=== PATIENT | male | born 1955 | race Caucasian/White ===

== ENCOUNTER 2017-04-13 22:29 | Observation (INO) | payer OTHER ==
[2017-04-13 22:51] VITALS: BMI 33.5
[2017-04-13] MEDS ORDERED: SODIUM CHLORIDE 500 ML IV STA (23:12)
[2017-04-13] MEDS ORDERED: methylPREDNISolone NA SUCC 125 MG/2 ML VIAL IVPB ONE (23:12)
[2017-04-14] MEDS ORDERED: methylPREDNISolone NA SUCC 125 MG/2 ML VIAL ONE (00:02)
[2017-04-14] MEDS ORDERED: ALBUTEROL SO4 2.5/IPRATROPIUM 0.5 INH SOL 3 ML VIAL.NEB. NEB ONE (00:02)
[2017-04-14 01:23] LABS: BASOPHIL 0.7 % (0-2.0); EOSINOPHIL 0.1 % (0-4.5); MCH 32.4 pg (25.7-33.7); MCHC 34.1 g/dl (32.0-35.9); MEAN CELL VOLUME 95.2 fl (80-96); NEUTROPHILS 88.2 % (42.8-82.8); PLATELET COUNT 205 K/MM3 (134-434); RDW 13.3 % (11.9-15.9); WHITE BLOOD COUNT 13.7 K/mm3 (4.0-10.0)
[2017-04-14] MEDS: ALBUTEROL SO4 2.5/IPRATROPIUM 0.5 INH SOL 3 ML VIAL.NEB. NEB SCH ×4 (01:43→23:05)
[2017-04-14 01:50] LABS: ALBUMIN 4.1 g/dl (3.4-5.0); ANION GAP 11 (8-16); BILIRUBIN,TOTAL 0.4 mg/dL (0.2-1.0); CALCIUM 8.8 mg/dL (8.5-10.1); CO2 24 mmol/L (21-32); CREATININE 0.8 mg/dL (0.7-1.3); GLUCOSE,RANDOM 147 mg/dL (74-106); SGOT/AST 37 U/L (15-37); SGPT/ALT 43 U/L (12-78)
[2017-04-14 01:53] LABS: ALK PHOS 68 U/L (45-117); TROPONIN I < 0.02 ng/ml (0.00-0.05)
[2017-04-14] MEDS ORDERED: IBUPROFEN 600 MG TABLET (FP) PO ONE ×2 (02:25→02:43)
--- NOTE | 2017-04-14 03:02 | PDOC ---
History of Present Illness - General Chief Complaint: Shortness of Breath Stated Complaint: SHORTNESS OF BREATH Time Seen by Provider: 04/13/17 23:02 History Source: Patient Exam Limitations: No Limitations - History of Present Illness Initial Comments: 04/14/17 02:55 61yo Male patient w/ PmHx: HTN, COPD, HLD presents to ED c/o SOB s/p rotator cuff surgery. Patient states procedure done by Dr. Wisdom at [facility] this morning. Patient states while recovering at home, he became extremely short of breath. Unable to walk short distances. He reports being a smoker and did have a cigarette 2 hours prior to his arrival. He denies CP, Abd pain, Back pain, fever, cough or any other complaints at this time. Timing/Duration: reports: just prior to arrival Severity: reports: moderate Episode Description: See HPI Possible Cause: Yes: no prior episodes Modifying Factors: worse with: activity, albuterol inhaler, albuterol nebulizer , antibiotics, coughing, lying down, oxygen, rest, other Associated Symptoms: denies: denies symptoms, chest pain/soreness, cough, dizziness, earache, facial pain, fever/chills, headache, lightheadedness, muscle aches, nasal congestion, nasal drainage, shortness of breath, sinus infection, sore throat, wheezing, other Past History - Travel Traveled outside of the country in the last 30 days: No Close contact w/someone who was outside of country & ill: No - Past Medical History Allergies/Adverse Reactions: Allergies Allergy/AdvReac Type Severity Reaction Status Date / Time Penicillins Allergy Severe Low Blood Verified 04/13/17 22:43 Pressure COPD: Yes HTN: Yes Hypercholesterolemia: Yes - Surgical History Appendectomy: Yes - Psycho/Social/Smoking Cessation Hx Suicidal Ideation: No Smoking History: Current every day smoker Have you smoked in the past 12 months: Yes Number of Cigarettes Smoked Daily: 20 Information on smoking cessation initiated: No Hx Alcohol Use: No Drug/Substance Use Hx: No Substance Use Type: None Respiratory Specific PMHX - Complaint Specific PMHX Angina: No Bronchitis: No Pneumonia: No Pulmonary Embolus: No TB (Tuberculosis): No Review of Systems - Review of Systems Able to Perform ROS?: Yes Is the patient limited [place] proficient: No Constitutional: No: Chills, Fever Respiratory: Yes: Shortness of Breath, SOB with Exertion, SOB at Rest Cardiac (ROS): No: Chest Pain ABD/GI: No: Constipated, Diarrhea, Nausea, Poor Appetite, Poor Fluid Intake, Vomiting : No: Burning, Dysuria, Flank Pain, Hematuria Musculoskeletal: No: Back Pain All Other Systems: Reviewed and Negative *Physical Exam - Vital Signs Last Vital Signs Temp Pulse Resp BP Pulse Ox 98.0 F 84 22 133/74 93 L 04/13/17 22:44 04/13/17 22:44 04/13/17 22:44 04/13/17 22:44 04/13/17 22:44 - Physical Exam General Appearance: Yes: Nourished, Appropriately Dressed. No: Apparent Distress, Mild Distress, Moderate Distress, Severe Distress Neck: positive: Trachea midline, Supple. negative: Lymphadenopathy (R), Lymphadenopathy (L) Respiratory/Chest: positive: Labored Respiration, Decreased Breath Sounds. negative: Lungs Clear, Normal Breath Sounds, Respiratory Distress, Accessory Muscle Use, Rapid RR, Paradoxal Breathing, Stridor, Wheezing Cardiovascular: positive: Regular Rhythm, Regular Rate Gastrointestinal/Abdominal: positive: Normal Bowel Sounds, Soft, Distended. negative: Tender, Guarding, Rebound, Tenderness Musculoskeletal: positive: Normal Inspection. negative: CVA Tenderness, Decreased Range of Motion, Vertebral Tenderness Extremity: positive: Normal Capillary Refill, Normal Inspection, Normal Range of Motion. negative: Pedal Edema, Swelling, Calf Tenderness, Erythema, Inflammation Integumentary: positive: Normal Color, Dry, Warm. negative: Erythema, Bruising Neurologic: positive: help desk consultant II-XII NML intact, Fully Oriented, Alert, Normal Mood/ Affect, Normal Response. negative: Motor Strength 5/5 ED Treatment Course - LABORATORY CBC & Chemistry Diagram: 04/14/17 01:14 04/14/17 01:14 - ADDITIONAL ORDERS Additional order review: Laboratory Results 04/14/17 04/14/17 01:14 01:14 Sodium 141 Potassium 4.1 Chloride 106 Carbon Dioxide 24 Anion Gap 11 BUN 14 Creatinine 0.8 Creat Clearance w eGFR > 60 Random Glucose 147 H Calcium 8.8 Total Bilirubin 0.4 AST 37 ALT 43 Alkaline Phosphatase 68 Troponin I < 0.02 B-Natriuretic Peptide 34.89 Total Protein 7.0 Albumin 4.1 04/14/17 01:14 RBC 4.50 MCV 95.2 MCHC 34.1 RDW 13.3 MPV 10.0 Neutrophils % 88.2 H Lymphocytes % 8.0 Monocytes % 3.0 L Eosinophils % 0.1 Basophils % 0.7 - RADIOLOGY Radiology Studies Ordered: Category Date Time Status CHEST CT WITH CONTRAST [CT] Stat CT Scan 04/14/17 02:25 Ordered CHEST PA & LAT [RAD] Stat Radiology 04/14/17 01:04 Taken - Medications Given in the ED: ED Medications Discontinued Medications Generic Name Dose Route Start Last Admin Trade Name So PRN Reason Stop Dose Admin Albuterol/Ipratropium 1 amp 04/13/17 23:15 04/14/17 01:43 Duoneb - NEB 04/14/17 00:01 1 amp Q15M JOSE MANUEL Administration Sodium Chloride 500 mls @ 500 mls/hr 04/13/17 23:12 04/14/17 01:43 Normal Saline - IV 04/14/17 00:11 500 mls/hr ASDIR STA Administration Ibuprofen 600 mg 04/14/17 02:25 04/14/17 02:45 Motrin - PO 04/14/17 02:26 600 mg ONCE ONE Administration Methylprednisolone Sodium Succinate 125 mg 04/13/17 23:12 04/14/17 01:44 Solu-Medrol - IVPB 04/13/17 23:13 125 mg ONCE ONE Administration Oxycodone/Acetaminophen 2 combo 04/14/17 02:25 04/14/17 02:45 Percocet 5/325 - PO 04/14/17 02:26 2 combo ONCE ONE Administration Medical Decision Making - Medical Decision Making 04/14/17 04:[address]-Scan. Unable to tolerate at this time. Risk and benefits of testing discussed with patient. Patient verbalized understanding. Will look to admit patient OBS. *DC/Admit/Observation/Transfer Diagnosis at time of Disposition: Hypoxia - Discharge Dispostion Condition at time of disposition: Fair Admit: Yes
[2017-04-14] MEDS ORDERED: MAGNESIUM SULF 50% (8.12 MEQ/2 ML-1 GM VIAL) IVPB ONE (03:44)
[2017-04-14] MEDS ORDERED: MAGNESIUM SULF 50% (8.12 MEQ/2 ML-1 GM VIAL) ONE (03:54)
--- NOTE | 2017-04-14 05:00 | HP ---
CHIEF COMPLAINT: SOB PCP: HISTORY OF PRESENT ILLNESS: This is a 61 y/o man with a past medical history of COPD, HTN, HLD, Current Smoker. Who presents to the ED s/p L- Rotator Cuff Repair, with SOB. Patient reports having shoulder surgery yesterday as an outpatient, and was SOB on discharge. Patient reports increased SOB, SEAY, orthopnea with diap. Patient reports usually he can walk up 2 hills or stairs. He reports not being able to take a few steps without being in distress since having the surgery. Patient admits to smoking a cigarette today, but now wants to quit. Patient denies fever , chills, CP, AP, N/V/D, constipation, dysuria. ER course was notable for: (1) Chest Xray- No evidence of active pulmonary disease. Left basilar ateclectasis versus soft tissues of the chest projecting over the left lung base stimulating atelectatic changes (2) WBC 13.2 (3) BNP 34.89 Recent Travel: None PAST MEDICAL HISTORY: COPD HTN HLD PAST SURGICAL HISTORY: R- Knee (plate) L- Knee Replacement L- Hip Replacement Appendectomy Social History: Smoking: Cigarettes 1PPD (active) Alcohol: None Drugs: None Family History: Father: Cancer, other (w mets/bone) Mother: Healthy, age 94 Allergies Penicillins Allergy (Severe, Verified 04/13/17 22:43) Low Blood Pressure HOME MEDICATIONS: REVIEW OF SYSTEMS CONSTITUTIONAL: diaphoresis Absent: fever, chills, generalized weakness, malaise, loss of appetite, weight change HEENT: Absent: rhinorrhea, nasal congestion, throat pain, throat swelling, difficulty swallowing, mouth swelling, ear pain, eye pain, visual changes CARDIOVASCULAR: Absent: chest pain, syncope, palpitations, irregular heart rate, lightheadedness , peripheral edema RESPIRATORY: shortness of breath, dyspnea with exertion, orthopnea Absent: cough, wheezing, stridor, hemoptysis GASTROINTESTINAL: Absent: abdominal pain, abdominal distension, nausea, vomiting, diarrhea, constipation, melena, hematochezia GENITOURINARY: Absent: dysuria, frequency, urgency, hesitancy, hematuria, flank pain, genital pain MUSCULOSKELETAL: left shoulder pain Absent: myalgia, arthralgia, joint swelling, back pain, neck pain SKIN: Absent: rash, itching, pallor HEMATOLOGIC/IMMUNOLOGIC: Absent: easy bleeding, easy bruising, lymphadenopathy, frequent infections ENDOCRINE: Absent: unexplained weight gain, unexplained weight loss, heat intolerance, cold intolerance NEUROLOGIC: Absent: headache, focal weakness or paresthesias, dizziness, unsteady gait, seizure, mental status changes, bladder or bowel incontinence PSYCHIATRIC: Absent: anxiety, depression, suicidal or homicidal ideation, hallucinations. PHYSICAL EXAMINATION Vital Signs - 24 hr 04/13/17 22:44 Temperature 98.0 F Pulse Rate 84 Respiratory 22 Rate Blood Pressure 133/74 O2 Sat by Pulse 93 L Oximetry (%) GENERAL: Obese, awake, alert, and fully oriented, in moderate distress. HEAD: Normal with no signs of trauma. EYES: Pupils equal, round and reactive to light, extraocular movements intact, sclera anicteric, conjunctiva clear. No lid lag. EARS, NOSE, THROAT: Ears normal, nares patent, oropharynx clear without exudates. Moist mucous membranes. NECK: Normal range of motion, supple without lymphadenopathy, JVD, or masses. LUNGS: Breath sounds diminished to left lobes. Pursed lip breathing. No wheezes , and no crackles. No accessory muscle use. HEART: Regular rate and rhythm, normal S1 and S2 without murmur, rub or gallop. ABDOMEN: Soft, nontender, not distended, normoactive bowel sounds, no guarding, no rebound, no masses. No hepatomegaly or splenomegaly. MUSCULOSKELETAL: Normal range of motion at all joints. No bony deformities or tenderness. No CVA tenderness. UPPER EXTREMITIES: 2+ pulses, warm, well-perfused. No cyanosis. No clubbing. No peripheral edema. LOWER EXTREMITIES: 2+ pulses, warm, well-perfused. No calf tenderness. No peripheral edema. NEUROLOGICAL: Cranial nerves II-XII intact. Normal speech. Gait not observed. PSYCHIATRIC: Cooperative. Good eye contact. Appropriate mood and affect. SKIN: Warm, dry, normal turgor, no rashes or lesions noted, normal capillary refill. Laboratory Results - last 24 hr 04/14/17 04/14/17 04/14/17 01:14 01:14 01:14 WBC 13.7 H RBC 4.50 Hgb 14.6 Hct 42.8 MCV 95.2 MCH 32.4 MCHC 34.1 RDW 13.3 Plt Count 205 MPV 10.0 Neutrophils % 88.2 H Lymphocytes % 8.0 Monocytes % 3.0 L Eosinophils % 0.1 Basophils % 0.7 Sodium 141 Potassium 4.1 Chloride 106 Carbon Dioxide 24 Anion Gap 11 BUN 14 Creatinine 0.8 Creat Clearance w eGFR > 60 Random Glucose 147 H Calcium 8.8 Total Bilirubin 0.4 AST 37 ALT 43 Alkaline Phosphatase 68 Troponin I < 0.02 B-Natriuretic Peptide 34.89 Total Protein 7.0 Albumin 4.1 ASSESSMENT/PLAN: This is a 61 y/o man Placed on Observation for Hypoxia for further evaluation of their emergent condition. Problem List - Problem (1) Hypoxia Assessment/Plan: - s/p Shoulder Sx strong suspicion for PE - Wells Score for PE 4.5 - Patient adamantly refused CTA, risks and dangers explained in detail - Will treat empirically with Heparin - Doppler of lower extremities r/o DT- pending - Solumederol, Duonebs, Percocet given in ED - Continue O2 - ABG- pending - Appreciate Pulmonary Consult Code(s): R09.02 - HYPOXEMIA (2) COPD (chronic obstructive pulmonary disease) Assessment/Plan: - Not Controlled - Likely exacerbated due to recent surgery, concern for PE - Duo neb given in ED - Duonebs prn - O2 - Chest Xray- no evidence of active pulmonary disease, left basilar atelectasis versus soft tissues of the chest projecting over the left lung base stimulating athletic changes - Monitor vitals Code(s): J44.9 - CHRONIC OBSTRUCTIVE PULMONARY DISEASE, UNSPECIFIED (3) HTN (hypertension) Assessment/Plan: - Controlled - Monitor BP - Need to verify in am home med Code(s): I10 - ESSENTIAL (PRIMARY) HYPERTENSION (4) HLD (hyperlipidemia) Assessment/Plan: - Continue home med Code(s): E78.5 - HYPERLIPIDEMIA, UNSPECIFIED (5) Tobacco dependence Assessment/Plan: - Counseled for smoking cessation, patient is amendable - Nicotine Patch Code(s): F17.200 - NICOTINE DEPENDENCE, UNSPECIFIED, UNCOMPLICATED (6) DVT prophylaxis Assessment/Plan: - OOB - Heparin Code(s): TQJ5580 - Visit type - Emergency Visit Emergency Visit: Yes ED Registration Date: 04/14/17 Care time: The patient presented to the Emergency Department on the above date and was hospitalized for further evaluation of their emergent condition. - New Patient This patient is new to me today: Yes Date on this admission: 04/14/17 - Critical Care Critical Care patient: No
[2017-04-14 06:02] LABS: ALLENS TEST POSITIVE; ART PUNCT SITE RIGHT RADIAL; ARTERIAL BLD GAS O2 SATURATION 91.4 % (90-98.9); ARTERIAL BLOOD GAS BASE EXCESS -3.5 meq/l (-2-2); ARTERIAL BLOOD GAS HCO3 19.5 meq/L (22-26); ARTERIAL BLOOD GAS PO2 58.8 mmHg (80-100); ARTERIAL BLOOD GAS pH 7.42 (7.35-7.45); PT. ON O2? NO; TYPE OF O2 ROOM AIR
[2017-04-14 06:03] LABS: METHEMOGLOBIN 0.8 % (0.4-1.5)
[2017-04-14] MEDS ORDERED: HEPARIN NA (PORCINE) 5,000 UNITS/ML 1ML VIAL IVPUSH PRN (06:23)
[2017-04-14] MEDS ORDERED: HEPARIN INFUSION - 500 ML IVPB SCH (06:30)
[2017-04-14] MEDS ORDERED: ALBUTEROL SO4 2.5/IPRATROPIUM 0.5 INH SOL 3 ML VIAL.NEB. NEB STA (07:05)
[2017-04-14] MEDS ORDERED: LORazepam 0.5 MG TABLET PO STA (08:03)
[2017-04-14] MEDS: oxyCODONE HCL 5 MG TABLET PO PRN ×3 (08:10→20:58)
[2017-04-14] MEDS: ACETAMINOPHEN 325 MG TABLET (FP) PO PRN ×2 (08:11→14:30)
[2017-04-14 08:28] LABS: MCH 32.2 pg (25.7-33.7); MCHC 33.9 g/dl (32.0-35.9); MEAN CELL VOLUME 95.2 fl (80-96); MEAN PLT VOLUME 10.3 fl (7.5-11.1); PLATELET COUNT 182 K/MM3 (134-434); RDW 13.7 % (11.9-15.9); WHITE BLOOD COUNT 9.5 K/mm3 (4.0-10.0)
[2017-04-14] MEDS: NICOTINE 21 MG/24 HOURS TOPICAL PATCH TD SCH (10:38)
--- NOTE | 2017-04-14 11:38 | EKG ---
Test Reason : Blood Pressure : / mmHG Vent. Rate : 090 BPM Atrial Rate : 090 BPM P-R Int : 130 ms QRS Dur : 104 ms QT Int : 354 ms P-R-T Axes : -13 -12 039 degrees QTc Int : 433 ms NORMAL SINUS RHYTHM ATRIAL ABNORMALITY ST-T ABNORMALITY IN aVL NO PREVIOUS ECGS AVAILABLE CL Confirmed by KEV SEGURA MD ([id number]) on 04/14/2017 11:37:52 AM Referred By: Confirmed By:KEV SEGURA MD
--- NOTE | 2017-04-14 13:42 | PN ---
Progress Note (short form) - Note Progress Note: PULMONARY CONSULTATION DICTATED 04/14/17 IMP ACUTE HYPOXEMIC RESPIRATORY FAILURE S/P LEFT SHOULDER SURGERY R/O PE COPD EXACERBATION HTN HLD POST-OP ATELECTASIS MORBID OBESITY R/O JUSTIN SMOKER PLAN INHALED BRONCHODILATORS O2 MEDROL HEPARIN PENDING RESULTS OF CHEST CTA AND LOWER EXT ULRASOUND DUPLEX ULTRASOUND LOWER EXTREMITIES CHEST CTA INCENTIVE SPIROMETER SMOKING CESSATION SLEEP SCREEN DR MCCARTHY Problem List - Problems (1) COPD (chronic obstructive pulmonary disease) Code(s): J44.9 - CHRONIC OBSTRUCTIVE PULMONARY DISEASE, UNSPECIFIED (2) HLD (hyperlipidemia) Code(s): E78.5 - HYPERLIPIDEMIA, UNSPECIFIED (3) HTN (hypertension) Code(s): I10 - ESSENTIAL (PRIMARY) HYPERTENSION (4) Hypoxia Code(s): R09.02 - HYPOXEMIA (5) Tobacco dependence Code(s): F17.200 - NICOTINE DEPENDENCE, UNSPECIFIED, UNCOMPLICATED (6) Acute hypoxemic respiratory failure Code(s): J96.01 - ACUTE RESPIRATORY FAILURE WITH HYPOXIA (7) Morbid obesity due to excess calories Code(s): E66.01 - MORBID (SEVERE) OBESITY DUE TO EXCESS CALORIES
[2017-04-14] MEDS: amLODIPine BESYLATE 10 MG TABLET (FP) PO SCH (14:29)
[2017-04-14] MEDS: ISOSORBIDE MONONITRATE 30 MG TAB.SR.24H (FP) PO SCH (14:29)
--- NOTE | 2017-04-14 14:30 | CONS ---
PULMONARY CONSULTATION DATE OF CONSULTATION: 04/14/2017 REQUESTING PHYSICIAN: MARTINEZ Carlton HISTORY OF PRESENT ILLNESS: The patient is a 61-year-old white male with past medical history of hyperlipidemia, COPD, hypertension, longstanding history of tobacco use, currently still smoking, history of left total hip replacement and left knee surgery, status post left rotator cuff surgery on April 13, presents to [facility] with shortness of breath. Patient states he underwent a rotator cuff surgery earlier on the day of admission. He said when waking up from anesthesia, he was unable to breathe. He had to sit up, and he said he was gasping for air. He said this is a new event. It has never happened before where he was unable to lie flat. Apparently, he improved a little bit and went home. When back home, he became extremely short of breath, unable to walk short distances. At which time, he presented to the emergency room. In the ER, he was noted to be hypoxemic, in moderate respiratory distress. He was administered some bronchodilators with minimal improvement and transferred out to the telemetry unit for further management. Patient also denies any chest pain, nausea, or vomiting. He had diaphoresis. The patient denied any cough or hemoptysis. He states that he has a longstanding history of tobacco use and currently still smokes. He denies any history of DVT or PE in the past. Of note is he was noticed to be hypoxemic and have elevated D-dimer on admission. He was advised of a CTA, which he initially refused. 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 There is no history of recent DVT or no family history of DVT or PE in the past. PAST MEDICAL HISTORY: Again includes hypertension, morbid obesity, as well as COPD maintained on inhaler bronchodilator. REVIEW OF SYSTEMS: Positive orthopnea. Positive dyspnea, wheeze. No chest pain. No palpitation. No nausea. No vomiting. No abdominal pain. CURRENT MEDICATIONS: Include Tylenol, heparin, NicoDerm, DuoNeb, and Roxicodone. PHYSICAL EXAMINATION: General: The patient is an obese male, well awake, alert, mildly dyspneic. Vital Signs: Blood pressure is 140/68, respiratory rate is about 28. He is afebrile. O2 saturation is 93% on 3 L. HEENT: Normocephalic, atraumatic. Neck: Supple. Heart: Regular with S1, S2. Chest: A few scattered wheezes anteriorly. Abdomen: Soft. Bowel sounds are positive. Extremities: Bilateral extremity edema. LABORATORY DATA: D-dimer is 392. Blood gas of pH 7.42, pCO2 of 30, pO2 of 58, a bicarbonate 19, and a saturation of 91.4. WBC is 9.5, hemoglobin 14.4, hematocrit 42.4, and a platelet count of 182,000. BUN is 14, creatinine is 0.8. Chest x-ray reveals no infiltrates and no effusions, left base atelectasis. IMPRESSION: Acute hypoxemic respiratory failure status post left shoulder surgery. 1. We cannot exclude the possible pulmonary embolism. Patient is at increased risk recent surgery as well as morbid obesity, likely a sedentary lifestyle. 2. Probable mild chronic obstructive pulmonary exacerbation precipitated by Anesthesia. 3. Hypertension. 4. Hyperlipidemia. 5. Likely obstructive sleep apnea. PLAN: Short inhaled bronchodilators, short course of steroids, duplex lower extremities, rule out DVT. Chest CTA to rule out PE. Continue anticoagulation pending results of duplex as well as chest CT. Supplemental O2. Smoking cessation is advised and counseled. MARGI MCCARTHY M.D. RUBIO/[id number]
[2017-04-14] MEDS ORDERED: LORazepam 1 MG TABLET PO ONE (14:34)
[2017-04-14] MEDS ORDERED: LORazepam 1 MG TABLET ONE (14:38)
[2017-04-14] MEDS: methylPREDNISolone NA SUCC 40 MG/1 ML VIAL IVPB SCH ×2 (14:44→20:57)
--- NOTE | 2017-04-14 18:10 | HOSP ---
Subjective - Review of Symptoms Events since last encounter: Patient seen and examined at bedside this morning. At the time was refusing to go for CTA. Did finally consent, results reviewed. No evidence of pulmonary embolism. Heparin drip stopped. Will order subq lovenox for this evening. Physical Examination Vital Signs: Vital Signs Temperature 98.1 F 04/14/17 10:00 Pulse Rate 89 04/14/17 13:09 Respiratory Rate 32 H 04/14/17 13:09 Blood Pressure 152/84 04/14/17 13:09 O2 Sat by Pulse Oximetry (%) 91 L 04/14/17 13:09 Labs: CBC, BMP 04/14/17 07:20
[2017-04-14] MEDS ORDERED: ACETAMINOPHEN 500 MG TABLET (FP) PO ONE (18:22)
[2017-04-14] MEDS ORDERED: ACETAMINOPHEN 325 MG TABLET (FP) PO ONE (18:22)
[2017-04-14] MEDS ORDERED: ACETAMINOPHEN 500 MG TABLET (FP) ONE (18:41)
[2017-04-14] MEDS ORDERED: ACETAMINOPHEN 325 MG TABLET (FP) PO PRN (20:31)
[2017-04-14] MEDS: ENOXAPARIN NA (PORCINE) 40 MG/0.4 ML DISP.SYRIN SQ SCH (20:57)
[2017-04-14] MEDS ORDERED: ZOLPIDEM TARTRATE 5 MG TABLET PO ONE (23:50)
[2017-04-14] MEDS ORDERED: ZOLPIDEM TARTRATE 5 MG TABLET ONE (23:52)
[2017-04-15] MEDS: ALBUTEROL SO4 2.5/IPRATROPIUM 0.5 INH SOL 3 ML VIAL.NEB. NEB SCH ×3 (06:30→13:25)
[2017-04-15 08:09] LABS: CPK 793 IU/L (39-308); TROPONIN I < 0.02 ng/ml (0.00-0.05)
[2017-04-15] MEDS: NICOTINE 21 MG/24 HOURS TOPICAL PATCH TD SCH (09:16)
[2017-04-15] MEDS: ENOXAPARIN NA (PORCINE) 40 MG/0.4 ML DISP.SYRIN SQ SCH (09:16)
[2017-04-15] MEDS: amLODIPine BESYLATE 10 MG TABLET (FP) PO SCH (09:17)
[2017-04-15] MEDS: ISOSORBIDE MONONITRATE 30 MG TAB.SR.24H (FP) PO SCH (09:18)
[2017-04-15] MEDS: methylPREDNISolone NA SUCC 40 MG/1 ML VIAL IVPB SCH (09:18)
[2017-04-15] MEDS: oxyCODONE HCL 5 MG TABLET PO PRN (09:18)
[2017-04-15 12:03] VITALS: BP 131/83; TEMP 98
--- NOTE | 2017-04-15 13:06 | PN ---
Progress Note (short form) - Note Progress Note: PULMONARY Breathing much improved. +mild nonproductive cough, denies wheezes. CTA without evidence of PE, with some bibasilar atelectasis. Last Vital Signs Temp Pulse Resp BP Pulse Ox 98.0 F 85 20 131/83 94 L 04/15/17 10:00 04/15/17 10:15 04/15/17 10:00 04/15/17 10:00 04/15/17 10:15 Gen: NAD at rest Heart: RRR Lung: distant breath sounds Abd: soft, nontender Ext: no edema CBC, BMP 04/14/17 07:20 04/14/17 01:14 Active Medications Acetaminophen (Tylenol -) 650 mg PO Q4H PRN PRN Reason: PAIN 6-10 Last Admin: 04/15/17 09:17 Dose: 650 mg Albuterol/Ipratropium (Duoneb -) 1 amp NEB Q4HWA [facility] Last Admin: 04/15/17 10:15 Dose: Not Given Amlodipine Besylate (Norvasc -) 10 mg PO DAILY [facility] Last Admin: 04/15/17 09:17 Dose: 10 mg Enoxaparin Sodium (Lovenox -) 40 mg SQ DAILY [facility] Last Admin: 04/15/17 09:16 Dose: 40 mg Isosorbide Mononitrate (Imdur -) 30 mg PO DAILY [facility] Last Admin: 04/15/17 09:18 Dose: 30 mg Nicotine (Nicoderm Patch -) 21 mg TD DAILY [facility] Last Admin: 04/15/17 09:16 Dose: 21 mg Oxycodone HCl (Roxicodone -) 10 mg PO Q4H PRN PRN Reason: PAIN 6-10 Last Admin: 04/15/17 09:18 Dose: 10 mg A/P Acute COPD Exacerbation Recent Shoulder Surgery Atelectasis HTN Morbid Obesity Smoker r/o JUSTIN - inhaled bronchodilators - incentive spirometry - smoking cessation - DVT prophylaxis - outpt PFTs, PSG but pt would like to defer sleep study at this time
--- NOTE | 2017-04-15 13:16 | DS ---
Physical Exam: SUBJECTIVE: Patient seen and examined at bedside. Feels better, breathing is better. OBJECTIVE: Vital Signs Period Temp Pulse Resp BP Sys/Vasquez Pulse Ox Last 24 Hr 97.8 F-98.7 F 80-89 18-20 119-134/56-84 94-94 PHYSICAL EXAM GENERAL: The patient is awake, alert, and fully oriented, in no acute distress. HEAD: Normal with no signs of trauma. EYES: PERRL, extraocular movements intact, sclera anicteric, conjunctiva clear. ENT: Ears normal, nares patent, oropharynx clear without exudates, moist mucous membranes. NECK: Trachea midline, full range of motion, supple. LUNGS: Breath sounds equal, clear to auscultation bilaterally, no wheezes, no crackles, no accessory muscle use. HEART: Regular rate and rhythm, S1, S2 without murmur, rub or gallop. ABDOMEN: Soft, nontender, nondistended, normoactive bowel sounds, no guarding, no rebound, no hepatosplenomegaly, no masses. EXTREMITIES: 2+ pulses, warm, well-perfused, no edema; left arm in immobilizer NEUROLOGICAL: Cranial nerves II through XII grossly intact. Normal speech, steady gait. LABS CBCD WBC 9.5 K/mm3 (4.0-10.0) D 04/14/17 07:20 RBC 4.45 M/mm3 (4.00-5.60) 04/14/17 07:20 Hgb 14.4 GM/dL (11.7-16.9) 04/14/17 07:20 Hct 42.4 % (35.4-49) 04/14/17 07:20 MCV 95.2 fl (80-96) 04/14/17 07:20 MCHC 33.9 g/dl (32.0-35.9) 04/14/17 07:20 RDW 13.7 % (11.9-15.9) 04/14/17 07:20 Plt Count 182 K/MM3 (134-434) 04/14/17 07:20 MPV 10.3 fl (7.5-11.1) 04/14/17 07:20 CMP Sodium 141 mmol/L (136-145) 04/14/17 01:14 Potassium 4.1 mmol/L (3.5-5.1) 04/14/17 01:14 Chloride 106 mmol/L (98-107) 04/14/17 01:14 Carbon Dioxide 24 mmol/L (21-32) 04/14/17 01:14 Anion Gap 11 (8-16) 04/14/17 01:14 BUN 14 mg/dL (7-18) 04/14/17 01:14 Creatinine 0.8 mg/dL (0.7-1.3) 04/14/17 01:14 Creat Clearance w eGFR > 60 (>60) 04/14/17 01:14 Calcium 8.8 mg/dL (8.5-10.1) 04/14/17 01:14 Total Bilirubin 0.4 mg/dL (0.2-1.0) 04/14/17 01:14 AST 37 U/L (15-37) 04/14/17 01:14 ALT 43 U/L (12-78) 04/14/17 01:14 Alkaline Phosphatase 68 U/L (45-117) 04/14/17 01:14 Total Protein 7.0 g/dl (6.4-8.2) 04/14/17 01:14 Albumin 4.1 g/dl (3.4-5.0) 04/14/17 01:14 Troponin, BNP 04/14/17 04/15/17 04/15/17 17:25 05:25 12:55 Troponin I < 0.02 < 0.02 < 0.02 HOSPITAL COURSE: Date of Admission:04/14/17 Date of Discharge: 04/15/17 Pre hospital course This is a 61 y/o man with a past medical history of COPD, HTN, HLD, 1 1/2 PPD smoker. Presented to the ED s/p left rotator cuff repair, complaining of SOB. Patient reported he had same day shoulder surgery the day before at an outside facility. He was SOB on discharge. Patient reported increased SOB, SEAY, and orthopnea with diaphoresis. Patient reported he usually can walk up 2 hills or 2 flights of stairs, but now cannot take more than a few steps without being in distress. Patient denied fever, sweats, chills; denied chest pain, palpitations , dizziness, or lightheadedness. ER course (1) Chest Xray- No evidence of active pulmonary disease. Left basilar ateclectasis versus soft tissues of the chest projecting over the left lung base stimulating atelectatic changes (2) WBC 13.2 (3) BNP 34.89 Subsequent hospital course Lower extremity dopplers were negative for DVT. CTA was negative for PE. CTA showed moderate to marked compression of T8 with minimal retropulsion and without any significant compromise of the spinal canal. 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 Patient oxygenation status was assessed prior to discharge. His SaO2 at rest on room air was 93%; his SaO2 with flat surface walking on room air was 91%. Patient declined inpatient screening for JUSTIN. Minutes to complete discharge: 35 Discharge Summary Reason For Visit: HYPOXIA Current Active Problems Acute hypoxemic respiratory failure (Acute) COPD (chronic obstructive pulmonary disease) (Acute) DVT prophylaxis (Acute) HLD (hyperlipidemia) (Acute) HTN (hypertension) (Acute) Hypoxia (Acute) Morbid obesity due to excess calories (Acute) Tobacco dependence (Acute) Condition: Improved - Instructions Diet, Activity, Other Instructions: Three prescriptions have been sent to [facility]. One is for a nicotine patch to help with smoking cessation. The other two are inhalers. Take all these medications as directed. You can follow up with the lab courier who saw you here at [facility], Dr. Penny. His contact information is enclosed. Return to the emergency department for any new or worsening symptoms. Referrals: Vaughn Penny MD [Staff Physician] - 2 Weeks Disposition: HOME - Home Medications Comprehensive Discharge Medication List: Ambulatory Orders Amlodipine Besylate [Norvasc -] 10 mg PO DAILY 04/14/17 Isosorbide Mononitrate [Isosorbide Mononitrate ER] 30 mg PO DAILY 04/14/17 This patient is new to me today: Yes Date on this admission: 04/15/17 Emergency Visit: Yes ED Registration Date: 04/14/17 Care time: The patient presented to the Emergency Department on the above date and was hospitalized for further evaluation of their emergent condition. Critical Care patient: No - Discharge Referral Referred to [facility] No
[2017-04-15 13:27] VITALS: PULSE 115
[2017-04-15 14:14] LABS: CPK 750 IU/L (39-308); TROPONIN I < 0.02 ng/ml (0.00-0.05)
== END 2017-04-15 14:30 | disposition home or self-care (01) ==
LOC: JER 22:29 → JERBED 04-14 05:40 → UNDOADMOB 04-14 05:40 → JERBED 04-14 05:43 → J4S 04-14 07:56
PROVIDERS: ADMIT Internal Medicine; ATTEND Nurse Practitioner Acute Care
PROC: 3E0333Z Introduction of Anti-inflammatory into Peripheral Vein, Percutaneous Approach (ICD-10-PCS; principal; 2017-04-14)
PROC: 3E033GC Introduction of Other Therapeutic Substance into Peripheral Vein, Percutaneous Approach (ICD-10-PCS; 2017-04-14)
PROC: 3E0337Z Introduction of Electrolytic and Water Balance Substance into Peripheral Vein, Percutaneous Approach (ICD-10-PCS; 2017-04-14)
PROC: 3E0F7GC Introduction of Other Therapeutic Substance into Respiratory Tract, Via Natural or Artificial Opening (ICD-10-PCS; 2017-04-14)
DX: J96.01 Acute respiratory failure with hypoxia (principal); I10 Essential (primary) hypertension; E78.5 Hyperlipidemia, unspecified; J44.1 Chronic obstructive pulmonary disease with (acute) exacerbation; F17.210 Nicotine dependence, cigarettes, uncomplicated; Z88.0 Allergy status to penicillin; E66.01 Morbid (severe) obesity due to excess calories; Z68.33 Body mass index [BMI] 33.0-33.9, adult
CPT/HCPCS: 36415; 36600; 71020-TC; 71275-TC; 80053; 82272; 82375; 82553; 82803; 83050; 83880; 84484; 85025; 85027; 85379; 85730; 93005; 93010; 93970-TC; 94010; 94640; 94761; 99285-25; G0378; J1644

== ENCOUNTER 2018-01-18 21:37 | Inpatient (IN) | payer OTHER ==
--- NOTE | 2018-01-18 21:49 | PDOC ---
History of Present Illness - General Chief Complaint: Injury Stated Complaint: CHEST PAIN/SOB Time Seen by Provider: 01/18/18 21:48 History Source: Patient - History of Present Illness Initial Comments: 01/19/18 00:00 62 year old male with right chest pain, increased SOB worse with exertion s/p mechanical trip and fall over PET prior to arrival, now with worsening pain. this is the second fall in two day with same mechanism. History : COPD; Past History - Past Medical History Allergies/Adverse Reactions: Allergies Allergy/AdvReac Type Severity Reaction Status Date / Time Penicillins Allergy Severe Low Blood Verified 01/18/18 21:45 Pressure Home Medications: Ambulatory Orders Amlodipine Besylate [Norvasc -] 10 mg PO DAILY 04/14/17 Isosorbide Mononitrate [Isosorbide Mononitrate ER] 30 mg PO DAILY 04/14/17 Albuterol Sulfate Inhaler - [Ventolin HFA Inhaler -] 1 - 2 inh PO Q4H #1 inhaler 04/15/17 Nicotine Patch [Nicoderm Patch -] 21 mg TD DAILY #30 patch 04/15/17 Tiotropium [place] [Spiriva] 1 inh PO DAILY #30 inhaler 04/15/17 Anemia: No Asthma: No Cancer: No Cardiac Disorders: No CVA: No COPD: Yes CHF: No Dementia: No Diabetes: No GI Disorders: No Disorders: No HTN: Yes Hypercholesterolemia: Yes Liver Disease: No Seizures: No Thyroid Disease: No - Surgical History Abdominal Surgery: No Appendectomy: Yes Cardiac Surgery: No Cholecystectomy: No Lung Surgery: No Neurologic Surgery: No Orthopedic Surgery: Yes (left rotator cuff surgery 04/13/2017) - Suicide/Smoking/Psychosocial Hx Smoking History: Former smoker Have you smoked in the past 12 months: No Number of Cigarettes Smoked Daily: 20 Information on smoking cessation initiated: No Hx Alcohol Use: No Drug/Substance Use Hx: No Substance Use Type: None Hx Substance Use Treatment: No Review of Systems - Review of Systems Able to Perform ROS?: Yes Is the patient limited Albanian proficient: No Respiratory: Yes: Shortness of Breath Cardiac (ROS): Yes: Chest Pain *Physical Exam - Vital Signs Last Vital Signs Temp Pulse Resp BP Pulse Ox 98.0 F 76 16 155/85 94 L 01/18/18 21:39 01/18/18 21:39 01/18/18 21:39 01/18/18 21:39 01/18/18 21:39 - Physical Exam General Appearance: Yes: Appropriately Dressed Respiratory/Chest: positive: Lungs Clear, Normal Breath Sounds, Other ( decreased breath sounds) Cardiovascular: positive: Regular Rhythm, Regular Rate Gastrointestinal/Abdominal: positive: Normal Bowel Sounds, Soft Musculoskeletal: positive: Normal Inspection Extremity: positive: Normal Capillary Refill, Normal Inspection, Normal Range of Motion Integumentary: positive: Normal Color, Dry, Warm Neurologic: positive: Fully Oriented, Alert, Normal Mood/Affect ED Treatment Course - LABORATORY CBC & Chemistry Diagram: 01/18/18 22:30 01/18/18 22:30 Medical Decision Making - Medical Decision Making 01/18/18 23:59 CT chest : There is no aortic aneurysm. There is no significant mediastinal or hilar adenopathy. The heart size is normal. The trachea and bronchi are patent. There is no pleural or pericardial effusion. Mild/moderate centrilobular emphysema is noted. There is basilar dependent atelectasis but no evidence of contusion. No pneumothorax. There are old right-sided rib fractures without definite acute fracture of the right seventh rib and possible acute fractures of the right fourth fifth and eighth ribs. Upper abdominal structures are normal. 01/19/18 00:36 patient signed out to Dr. lilly/ Dr. Mahoney for admission and further management of care. *DC/Admit/Observation/Transfer Diagnosis at time of Disposition: Shortness of breath on exertion Multiple fractures of ribs Qualifiers: Encounter type: initial encounter Fracture type: closed Laterality: right Qualified Code(s): S22.41XA - Multiple fractures of ribs, right side, initial encounter for closed fracture COPD (chronic obstructive pulmonary disease) Qualifiers: COPD type: unspecified COPD Qualified Code(s): J44.9 - Chronic obstructive pulmonary disease, unspecified - Discharge Dispostion Decision to Admit order: Yes - Referrals Referrals: Marko Croft MD [Primary Care Provider] - - Patient Instructions - Post Discharge Activity
[2018-01-18] MEDS ORDERED: ALBUTEROL SO4 0.083% IH SOL 2.5 MG/3 ML VIAL.NEB. NEB ONE ×2 (21:55→22:30)
--- NOTE | 2018-01-18 22:03 | PDOC ---
*Physical Exam - Vital Signs Last Vital Signs Temp Pulse Resp BP Pulse Ox 98.0 F 76 16 155/85 94 L 01/18/18 21:39 01/18/18 21:39 01/18/18 21:39 01/18/18 21:39 01/18/18 21:39 ED Treatment Course - LABORATORY CBC & Chemistry Diagram: 01/18/18 22:30 01/18/18 22:30 Medical Decision Making - Medical Decision Making 01/18/18 22:15 Mr Reid is a 62 yo M who presents to the ER via EMS s/p fall with chest trauma and chest pain Pt apparently had a prior fall several days ago with chest trauma S/p outpatient Xray which showed some atalectasis and compression fracture Pt states he was chasing his dog, slipped in his yard and struck his chest on a brick wall Noted some chest pain yesterday but this worsened Pt presents with severe chest wall pain and difficulty breathing due to pain On examination: Pt seen by Midlevel Provider under my direct supervision Pt interviewed and examined O2 sat - 93% on room air Bilateral breath sounds No use of accessory muscles No bruising of chest wall Ancillary studies reviewed Labs: CT chest: Pt given pain medications I agree with plan as outlined by Midlevel Provider 01/18/18 22:18 01/19/18 00:23 Laboratory Tests 01/18/18 01/18/18 01/18/18 22:30 22:30 22:30 WBC 15.9 H D Hgb 14.7 Hct 44.4 Plt Count 199 Neutrophils % (Manual) 78.0 INR 0.93 Sodium 145 Potassium 4.1 Chloride 112 H Carbon Dioxide 22 BUN 25 H D Creatinine 0.7 Random Glucose 120 H Creatine Kinase 220 Creatine Kinase Index 1.4 CK-MB (CK-2) 3.08 Troponin I < 0.02 B-Natriuretic Peptide 01/18/18 22:30 WBC Hgb Hct Plt Count Neutrophils % (Manual) INR Sodium Potassium Chloride Carbon Dioxide BUN Creatinine Random Glucose Creatine Kinase Creatine Kinase Index CK-MB (CK-2) Troponin I B-Natriuretic Peptide 178.[address] chest with multiple old and new rib ractures Will plan to admit for pain control as pt is splinting and having difficulty breathing Clinical Impression: Multiple rib fractures, initial presentation *DC/Admit/Observation/Transfer Diagnosis at time of Disposition: Multiple fractures of ribs, COPD (chronic obstructive pulmonary disease), Shortness of breath on exertion - Referrals Referrals: Marko Croft MD [Primary Care Provider] - - Patient Instructions - Post Discharge Activity
[2018-01-18] MEDS ORDERED: morphine CARPU-JECT 4 MG/1 ML DISP.SYRIN IVPUSH ONE (22:14)
[2018-01-18 22:21] LABS: ARTERIAL BLOOD GAS pH 7.45 (7.35-7.45)
[2018-01-18 22:22] LABS: ALLENS TEST POSITIVE; ARTERIAL BLD GAS O2 SATURATION 96.3 % (90-98.9); ARTERIAL BLOOD GAS BASE EXCESS 1.8 meq/l (-2-2); ARTERIAL BLOOD GAS PO2 76.3 mmHg (80-100)
[2018-01-18] MEDS ORDERED: morphine CARPU-JECT 2 MG/1 ML DISP.SYRIN ONE (22:31)
[2018-01-18 22:53] LABS: HEMATOCRIT 44.4 % (35.4-49); HEMOGLOBIN 14.7 GM/dL (11.7-16.9); MCH 32.7 pg (25.7-33.7); MCHC 33.1 g/dl (32.0-35.9); MEAN CELL VOLUME 98.8 fl (80-96); MEAN PLT VOLUME 9.4 fl (7.5-11.1); PLATELET COUNT 199 K/MM3 (134-434); RBC 4.49 M/mm3 (4.00-5.60); RDW 16.4 % (11.9-15.9); WHITE BLOOD COUNT 15.9 K/mm3 (4.0-10.0)
[2018-01-18] MEDS ORDERED: LORazepam 2 MG/ML SDV VIAL ONE (23:01)
[2018-01-18 23:06] LABS: INR 0.93 (0.82-1.09); PROTHROMBIN TIME (PATIENT) 10.5 SEC (9.7-13.0)
[2018-01-18 23:16] LABS: ALBUMIN 3.3 g/dl (3.4-5.0); ANION GAP 11 (8-16); BILIRUBIN,TOTAL 0.4 mg/dL (0.2-1.0); BLOOD UREA NITROGEN 25 mg/dL (7-18); CALCIUM 8.4 mg/dL (8.5-10.1); CHLORIDE 112 mmol/L (98-107); CO2 22 mmol/L (21-32); CREATININE 0.7 mg/dL (0.7-1.3); GLUCOSE,RANDOM 120 mg/dL (74-106); MAGNESIUM 2.2 mg/dL (1.8-2.4); POTASSIUM 4.1 mmol/L (3.5-5.1); SGOT/AST 36 U/L (15-37); SGPT/ALT 64 U/L (12-78); SODIUM 145 mmol/L (136-145); TOT PROT 6.5 g/dl (6.4-8.2)
[2018-01-18 23:17] LABS: ALK PHOS 92 U/L (45-117)
[2018-01-18 23:32] LABS: MACROCYTOSIS 1+; PLATELET ESTIMATE ADEQUATE
[2018-01-19] MEDS ORDERED: IPRATROPIUM BR 0.02% 0.5 MG/2.5 ML VIAL.NEB. NEB PRN (00:35)
[2018-01-19] MEDS ORDERED: morphine SULFATE 4 MG/ML VIAL IVPUSH PRN ×3 (00:35→15:13)
[2018-01-19] MEDS ORDERED: KETOROLAC TROMETHAMINE 15 MG/ML VIAL IVPUSH PRN (00:35)
[2018-01-19] MEDS ORDERED: ALBUTEROL SO4 0.083% IH SOL 2.5 MG/3 ML VIAL.NEB. NEB PRN (00:35)
--- NOTE | 2018-01-19 00:44 | HP ---
CHIEF COMPLAINT: R chest wall pain HISTORY OF PRESENT ILLNESS: 62 year old male with a hx of HTN, COPD, HLD presents s/p fall on Thursday (3 days ago). He states that he was walking his dog when he accidentally tripped and slid down to the ground hitting the right side of his chest. He has had continual mild pain since then. Earlier today around 6pm the patient was trying to bend over to feed the dogs when he felt a sharp crack and severe pain in his R chest wall. Patient began to have difficulty breathing and anxiety, and so he came to the hospital. He states that the pain is "internal" and does not hurt when he presses on it. He reports that it hurts him only when he takes a very deep breath. Denies nausea, vomiting, fevers or chills. Denies being sick recently. 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 ER course was notable for: (1) WBC 15.9 (2) CT chest noting fractures of ribs 4, 5, 8 on R and bibasilar atelectasis (3) PAST MEDICAL HISTORY: HTN COPD HLD PAST SURGICAL HISTORY: Repair of L hip and bilateral knees Social History: Smoking: quit 1 year ago, 50 pack/year smoker, 1 pack a day Alcohol: denies Drugs: denies Allergies Penicillins Allergy (Severe, Verified 01/18/18 21:45) Low Blood Pressure HOME MEDICATIONS: Home Medications Medication Instructions Recorded Amlodipine Besylate [Norvasc -] 10 mg PO DAILY 04/14/17 Isosorbide Mononitrate [Isosorbide 30 mg PO DAILY 04/14/17 Mononitrate ER] Albuterol Sulfate Inhaler - 1 - 2 inh PO Q4H #1 inhaler 04/15/17 [Ventolin HFA Inhaler -] Nicotine Patch [Nicoderm Patch -] 21 mg TD DAILY #30 patch 04/15/17 Tiotropium [place] [Spiriva] 1 inh PO DAILY #30 inhaler 04/15/17 REVIEW OF SYSTEMS CONSTITUTIONAL: Absent: fever, chills, diaphoresis, generalized weakness, malaise, loss of appetite, weight change HEENT: Absent: rhinorrhea, nasal congestion, throat pain, throat swelling, difficulty swallowing, mouth swelling, ear pain, eye pain, visual changes CARDIOVASCULAR: chest pain, Absent: syncope, palpitations, irregular heart rate, lightheadedness, peripheral edema RESPIRATORY: shortness of breath Absent: cough,dyspnea with exertion, orthopnea, wheezing, stridor, hemoptysis GASTROINTESTINAL: Absent: abdominal pain, abdominal distension, nausea, vomiting, diarrhea, constipation, melena, hematochezia GENITOURINARY: Absent: dysuria, frequency, urgency, hesitancy, hematuria, flank pain, genital pain MUSCULOSKELETAL: Absent: myalgia, arthralgia, joint swelling, back pain, neck pain SKIN: Absent: rash, itching, pallor HEMATOLOGIC/IMMUNOLOGIC: Absent: easy bleeding, easy bruising, lymphadenopathy, frequent infections ENDOCRINE: Absent: unexplained weight gain, unexplained weight loss, heat intolerance, cold intolerance NEUROLOGIC: Absent: headache, focal weakness or paresthesias, dizziness, unsteady gait, seizure, mental status changes, bladder or bowel incontinence PSYCHIATRIC: Absent: anxiety, depression, suicidal or homicidal ideation, hallucinations. PHYSICAL EXAMINATION Vital Signs - 24 hr 01/18/18 21:39 Temperature 98.0 F Pulse Rate 76 Respiratory 16 Rate Blood Pressure 155/85 O2 Sat by Pulse 94 L Oximetry (%) GENERAL: A&Ox3, moderate distress EYES: PERRLA, EOMI ENT: Moist mucus membranes NECK: No JVD noted LUNGS: CTA, no wheezes or rales noted HEART: mildly tachycardic but regular, no murmurs ABDOMEN: Obese Soft, nontender, BS present MUSCULOSKELETAL: No CVA Tenderness, chest wall tenderness present on R side around level of 4th/5th rib mid-axillary line EXTREMITIES: 2+ pulses, no edema. NEUROLOGICAL: Cranial nerves II-XII intact. Laboratory Results - last 24 hr 01/18/18 01/18/18 01/18/18 22:10 22:30 22:30 WBC 15.9 H D RBC 4.49 Hgb 14.7 Hct 44.4 MCV 98.8 H MCH 32.7 MCHC 33.1 RDW 16.4 H Plt Count 199 MPV 9.4 Total Counted 100 Neutrophils % No Result Required. Neutrophils % (Manual) 78.0 Lymphocytes % No Result Required. Lymphocytes % (Manual) 11.0 Monocytes % (Manual) 8 Myelocytes % (Man) 2 Nucleated RBC % 0 Differential Comment Man diff performed Platelet Estimate Adequate Platelet Comment Polychromasia 1+ Macrocytosis 1+ PT with INR 10.50 INR 0.93 Anticoagulation Therapy No Result Required. Puncture Site Right radial ABG pH 7.45 ABG pCO2 at Pt Temp 37.0 ABG pO2 at Pt Temp 76.3 L D ABG HCO3 25.1 ABG O2 Sat (Measured) 96.3 ABG O2 Content 18.8 ABG Base Excess 1.8 Test Positive O2 Delivery Device Nasal Oxygen Flow Rate 2l Vent Mode No Result Required. Vent Rate No Result Required. Mechanical Rate No Result Required. Pressure Support Vent No Result Required. Sodium Potassium Chloride Carbon Dioxide Anion Gap BUN Creatinine Creat Clearance w eGFR Random Glucose Calcium Magnesium Total Bilirubin AST ALT Alkaline Phosphatase Creatine Kinase Creatine Kinase Index CK-MB (CK-2) Troponin I B-Natriuretic Peptide Total Protein Albumin 01/18/18 01/18/18 22:30 22:30 WBC RBC Hgb Hct MCV MCH MCHC RDW Plt Count MPV Total Counted Neutrophils % Neutrophils % (Manual) Lymphocytes % Lymphocytes % (Manual) Monocytes % (Manual) Myelocytes % (Man) Nucleated RBC % Differential Comment Platelet Estimate Platelet Comment Polychromasia Macrocytosis PT with INR INR Anticoagulation Therapy Puncture Site ABG pH ABG pCO2 at Pt Temp ABG pO2 at Pt Temp ABG HCO3 ABG O2 Sat (Measured) ABG O2 Content ABG Base Excess Test O2 Delivery Device Oxygen Flow Rate Vent Mode Vent Rate Mechanical Rate Pressure Support Vent Sodium 145 Potassium 4.1 Chloride 112 H Carbon Dioxide 22 Anion Gap 11 BUN 25 H D Creatinine 0.7 Creat Clearance w eGFR > 60 Random Glucose 120 H Calcium 8.4 L Magnesium 2.2 Total Bilirubin 0.4 AST 36 ALT 64 D Alkaline Phosphatase 92 D Creatine Kinase 220 Creatine Kinase Index 1.4 CK-MB (CK-2) 3.08 Troponin I < 0.02 B-Natriuretic Peptide 178.00 H Total Protein 6.5 Albumin 3.3 L ASSESSMENT/PLAN: 62 year old male with a hx of HTN, COPD, HLD presents to the hospital with acute rib fractures s/p fall #Acute rib fractures: fractures of ribs 4, 5, [address] scan, likely causing his acute shortness of breath as well -get official read in AM of the CT scan of chest -encourage incentive spirometry -dilaudid 2mg ONCE -tylenol 650 q4 PRN pain -toradol 15mg IV push Q6h PRN pain -morphine 2mg q3h for pain -percocet PRN for breakthrough pain only -monitor O2 sats -O2 by nasal cannula 2-3 liters #COPD: patient has hx of COPD and is likely in mild-moderate acute exacerbation -continue duonebs PRN -Spiriva -mometasone -Prednisone 40 Q8 -monitor O2 saturation #Hypoxia: could be a result of rib fractures and decreased breathing effort, COPD exacerbation, or low suspicion for PE -obtained D dimer due to lower suspicion for PE as patient had acute shortness of breath and 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 In the meantime, will start xarelto 15mg BID -continue to treat COPD and rib fractures as listed above #Hypertension: mildly hypertensive -continue amlodipine 10mg PO QD #HLD: not an acute concern -not on medications, but confirm with pharmacy in AM #FEN -no standing fluids -replete lytes as necessary in AM -low sodium diet #Prophylaxis -heparin 5000 subq tid #Disposition -admit med surg -d/w Dr. Lozano Visit type - Emergency Visit Emergency Visit: Yes ED Registration Date: 01/19/18 Care time: The patient presented to the Emergency Department on the above date and was hospitalized for further evaluation of their emergent condition. - New Patient This patient is new to me today: Yes Date on this admission: 01/19/18 - Critical Care Critical Care patient: No Hospitalist Screening - Colonoscopy Questionnaire Colonoscopy Questionnaire: Colonoscopy Questionnaire - Patient: 50 - 75 years old and never had a screening colonoscopy: Unknown History of colon or rectal polyps, or CA: Unknown History of IBD, Crohn's disease or UC: Unknown History of abdominal radiation therapy as a child: Unknown - Relative: 1 with colon or rectal CA, or polyps at age 60 or younger: Unknown Colon or rectal CA diagnosed at age 45 or younger: Unknown Multiple relatives with colon or rectal CA: Unknown - Outcome: Screening Result: Negative Screen
--- NOTE | 2018-01-19 01:07 | PN ---
Teaching Attending Note Name of Resident: Rich Hogue ATTENDING PHYSICIAN STATEMENT I saw and evaluated the patient. I reviewed the resident's note and discussed the case with the resident. I agree with the resident's findings and plan as documented. SUBJECTIVE: Patient is 62 year old man with the chief complaint of fall with chest trauma and chest pain. Says he fell down while chasing his dogs and hurt his right chest wall. However, the day before he "twisted" his chest wall and lower back when he stooped to tend to his dogs, but before then was having SOB and got prednisone from his PCP. He had outpatient CXR which showed some atalectasis and compression fracture. 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 Has a PMH of hypertension, COPD and hyperlipidemia. His pain is pleuritc and he was noted to have hypoxia, leukocytosis, tachycardia, uncontrolled hypertension and CT scan showed fractures of right ribs 4,5,8 and possibly 7. OBJECTIVE: Alert, but in a lot of pain. Vital Signs Period Temp Pulse Resp BP Sys/Vasquez Pulse Ox Last 24 Hr 97.8 F-98.0 F 76-83 16-17 133-155/67-85 92-94 HEENT: No Jaundice, eye redness or discharge, PERRLA, EOMI. Normocephalic, atraumatic. External ears are normal and hearing is grossly intact. Abrasion on his nasal bridge, No nasal discharge. Neck: Supple, nontender. No palpable adenopathy or thyromegaly. No JVD Chest: Good effort. Tender right chest wall; good air entry, prolonged expiration with end expiratory wheezing left upper posterior chest. Heart: Regular. No S3, rub or murmur Abdomen: Not distended, soft, nontender and no HSM. No rebound or guarding. Normoactive bowel sounds. Ext: Peripheral pulses intact. No leg edema. Skin: Warm and dry. No petechiae, or rash. Ecchymosis dorsum of left forearm. Neuro: Alert. Oriented x3. CN 2-12 grossly intact. Sensation grossly intact in all four extremities and DTR are symmetric. Current Medications Generic Name Dose Route Start Last Admin Trade Name Freq PRN Reason Stop Dose Admin Acetaminophen 650 mg 01/19/18 00:35 Tylenol - PO Q4H PRN PAIN LEVEL 1-3 Albuterol Sulfate 1 amp 01/19/18 00:35 Ventolin 0.083% Nebulizer Soln - NEB Q6H PRN SHORT OF BREATH/WHEEZING Amlodipine Besylate 10 mg 01/19/18 10:00 Norvasc - PO DAILY [facility] Heparin Sodium (Porcine) 5,000 unit 01/19/18 06:00 Heparin - SQ TID JOSE MANUEL Ipratropium [place] 1 amp 01/19/18 00:35 Atrovent 0.02% Nebulizer - NEB Q6H PRN WHEEZING Isosorbide Mononitrate 30 mg 01/19/18 10:00 Imdur - PO DAILY [facility] Ketorolac Tromethamine 15 mg 01/19/18 00:35 Toradol Injection - IVPUSH 01/24/18 00:34 Q6H PRN PAIN LEVEL 4 - 6 Morphine Sulfate 2 mg 01/19/18 01:13 01/19/18 01:14 Morphine Sulfate IVPUSH 2 mg Q3H PRN Administration PAIN LEVEL 7 - 10 Nicotine 21 mg 01/19/18 10:00 Nicoderm Patch - TD DAILY [facility] Oxycodone/Acetaminophen 1 combo 01/19/18 01:14 Percocet 5/325 - PO 01/19/18 01:15 Q4H PRN PAIN LEVEL 7 - 10 Home Medications Medication Instructions Recorded Amlodipine Besylate [Norvasc -] 10 mg PO DAILY 04/14/17 Isosorbide Mononitrate [Isosorbide 30 mg PO DAILY 04/14/17 Mononitrate ER] Albuterol Sulfate Inhaler - 1 - 2 inh PO Q4H #1 inhaler 04/15/17 [Ventolin HFA Inhaler -] Nicotine Patch [Nicoderm Patch -] 21 mg TD DAILY #30 patch 04/15/17 Tiotropium [place] [Spiriva] 1 inh PO DAILY #30 inhaler 04/15/17 Abnormal Lab Results 01/18/18 01/18/18 01/18/18 22:10 22:30 22:30 WBC 15.9 H D MCV 98.8 H RDW 16.4 H ABG pO2 at Pt Temp 76.3 L D Chloride 112 H BUN 25 H D Random Glucose 120 H Calcium 8.4 L B-Natriuretic Peptide Albumin 3.3 L 01/18/18 22:30 WBC MCV RDW ABG pO2 at Pt Temp Chloride BUN Random Glucose Calcium B-Natriuretic Peptide 178.00 H Albumin ASSESSMENT AND PLAN: 1. Fall and Multiple right rib fractures - Will be judicious with narcotic analgesic therapy to avoid respiratory depression. Treat with morphine 2 mg IV q 3, and toradol. Monitor for delayed bleeding, and pneumothorax. Incentive spirometry once he can tolerate it. Treat with Senna to preempt constipation. Consult Ortho to consider intercoastal nerve block. 2. COPD exacerbation - Was evident even before his fall. No infiltrate on CT scan. Leukocytosis likely due to steroids. Will treat with Duoneb, Spiriva, Dulera, Solumedrol 40 mg IV q 8h, IV Rocephin and PO Azithromycin. Nasal canula O2 and monitor O2 saturation. 3. Hypoxia - Remote possiblility of PE - will get, d-dimer stat. If no general improvement, will get CTPA in 24 hours, since he already got a chest CT this evening. 4. Hypertension - Adjust medications to attain normotension. 5. Hyperlipidemia - Check lipid profile. 6. DVT prophylaxis - Heparin [id number] sq tid 7. Advance directives - Full code
[2018-01-19] MEDS ORDERED: morphine CARPU-JECT 2 MG/1 ML DISP.SYRIN ONE ×2 (01:15→07:34)
[2018-01-19] MEDS ORDERED: DOCUSATE SODIUM 100 MG CAPSULE (FP) PO PRN (02:34)
[2018-01-19] MEDS ORDERED: HYDROmorphone HCL 2 MG TABLET PO SCH (02:45)
[2018-01-19] MEDS ORDERED: HYDROmorphone HCL 2 MG TABLET PO ONE (02:46)
[2018-01-19] MEDS: RIVAROXABAN 15 MG TABLET PO SCH ×2 (04:59→10:28)
[2018-01-19] MEDS ORDERED: HYDROmorphone HCL 2 MG TABLET ONE (05:00)
[2018-01-19] MEDS ORDERED: HEPARIN NA (PORCINE) 5,000 UNITS/ML 1ML VIAL SQ SCH (06:00)
[2018-01-19] MEDS ORDERED: predniSONE 20 MG TABLET (UD) PO SCH (06:00)
[2018-01-19] MEDS: morphine SULFATE 4 MG/ML VIAL IVPUSH PRN ×2 (07:40→13:48)
[2018-01-19] MEDS ORDERED: CEFTRIAXONE 2 GM-D5W BAG 2 GM/50 ML BAG IVPB SCH (10:00)
[2018-01-19] MEDS ORDERED: methylPREDNISolone NA SUCC 40 MG/1 ML VIAL IVPUSH SCH (10:00)
--- NOTE | 2018-01-19 10:14 | PN ---
Physical Exam: SUBJECTIVE: Patient seen and examined. Pain controlled on medication. OBJECTIVE: Vital Signs Period Temp Pulse Resp BP Sys/Vasquez Pulse Ox Last 24 Hr 97.8 F-98.6 F 68-83 16-24 133-155/67-90 92-97 Vital Signs Temp 97.8 F 01/19/18 12:03 Pulse 72 01/19/18 12:03 Resp 18 01/19/18 12:10 BP 125/77 01/19/18 12:03 Pulse Ox 97 01/19/18 12:10 GENERAL: The patient is obese, awake, alert, and fully oriented, NC-3L. HEAD: Blood streak over bridge of nose EYES: PERRL, extraocular movements intact. ENT: NC-3L, missing teeth LUNGS: Wheezes, and rhonchi. HEART: Regular rate and rhythm, S1, S2 . ABDOMEN: Bruise on R abdomen and flank. Obese, Soft, nontender, nondistended, normoactive bowel sounds EXTREMITIES: 2+ pulses, warm, well-perfused, no edema. NEUROLOGICAL: Cranial nerves II through XII grossly intact. speech hard to understand, gait not observed. CBC, BMP 01/18/18 22:30 01/18/18 22:30 Laboratory Results - last 24 hr 01/18/18 01/18/18 01/18/18 22:10 22:30 22:30 WBC 15.9 H D RBC 4.49 Hgb 14.7 Hct 44.4 MCV 98.8 H MCH 32.7 MCHC 33.1 RDW 16.4 H Plt Count 199 MPV 9.4 Total Counted 100 Neutrophils % No Result Required. Neutrophils % (Manual) 78.0 Lymphocytes % No Result Required. Lymphocytes % (Manual) 11.0 Monocytes % (Manual) 8 Myelocytes % (Man) 2 Nucleated RBC % 0 Differential Comment Man diff performed Platelet Estimate Adequate Platelet Comment Polychromasia 1+ Macrocytosis 1+ PT with INR 10.50 INR 0.93 D-Dimer Anticoagulation Therapy No Result Required. Puncture Site Right radial ABG pH 7.45 ABG pCO2 at Pt Temp 37.0 ABG pO2 at Pt Temp 76.3 L D ABG HCO3 25.1 ABG O2 Sat (Measured) 96.3 ABG O2 Content 18.8 ABG Base Excess 1.8 Test Positive O2 Delivery Device Nasal Oxygen Flow Rate 2l Vent Mode No Result Required. Vent Rate No Result Required. Mechanical Rate No Result Required. Pressure Support Vent No Result Required. Sodium Potassium Chloride Carbon Dioxide Anion Gap BUN Creatinine Creat Clearance w eGFR Random Glucose Calcium Magnesium Total Bilirubin AST ALT Alkaline Phosphatase Creatine Kinase Creatine Kinase Index CK-MB (CK-2) Troponin I B-Natriuretic Peptide Total Protein Albumin 01/18/18 01/18/18 01/19/18 22:30 22:30 01:30 WBC RBC Hgb Hct MCV MCH MCHC RDW Plt Count MPV Total Counted Neutrophils % Neutrophils % (Manual) Lymphocytes % Lymphocytes % (Manual) Monocytes % (Manual) Myelocytes % (Man) Nucleated RBC % Differential Comment Platelet Estimate Platelet Comment Polychromasia Macrocytosis PT with INR INR D-Dimer 1006 H Anticoagulation Therapy Puncture Site ABG pH ABG pCO2 at Pt Temp ABG pO2 at Pt Temp ABG HCO3 ABG O2 Sat (Measured) ABG O2 Content ABG Base Excess Test O2 Delivery Device Oxygen Flow Rate Vent Mode Vent Rate Mechanical Rate Pressure Support Vent Sodium 145 Potassium 4.1 Chloride 112 H Carbon Dioxide 22 Anion Gap 11 BUN 25 H D Creatinine 0.7 Creat Clearance w eGFR > 60 Random Glucose 120 H Calcium 8.4 L Magnesium 2.2 Total Bilirubin 0.4 AST 36 ALT 64 D Alkaline Phosphatase 92 D Creatine Kinase 220 Creatine Kinase Index 1.4 CK-MB (CK-2) 3.08 Troponin I < 0.02 B-Natriuretic Peptide 178.00 H Total Protein 6.5 Albumin 3.3 L Active Medications Generic Name Dose Route Start Last Admin Trade Name Freq PRN Reason Stop Dose Admin Acetaminophen 650 mg 01/19/18 00:35 Tylenol - PO Q4H PRN PAIN LEVEL 1-3 Albuterol Sulfate 1 amp 01/19/18 00:35 Ventolin 0.083% Nebulizer Soln - NEB Q6H PRN SHORT OF BREATH/WHEEZING Amlodipine Besylate 10 mg 01/19/18 10:00 Norvasc - PO DAILY [facility] Docusate Sodium 100 mg 01/19/18 02:34 Colace - PO Q8H PRN CONSTIPATION Azithromycin 500 mg/ Dextrose 250 mls @ 250 mls/hr 01/19/18 10:00 IVPB DAILY [facility] Ceftriaxone Sodium 1 gm/ 50 mls @ 200 mls/hr 01/19/18 10:00 Dextrose IVPB DAILY [facility] Protocol Ipratropium [place] 1 amp 01/19/18 00:35 Atrovent 0.02% Nebulizer - NEB Q6H PRN WHEEZING Isosorbide Mononitrate 30 mg 01/19/18 10:00 Imdur - PO DAILY [facility] Ketorolac Tromethamine 15 mg 01/19/18 00:35 Toradol Injection - IVPUSH 01/24/18 00:34 Q6H PRN PAIN LEVEL 4 - 6 Methylprednisolone Sodium Succinate 40 mg 01/19/18 10:00 Solu-Medrol - IVPUSH Q8H-IV [facility] Mometasone Furoate 1 puff 01/19/18 10:00 Asmanex 110mcg - IH DAILY [facility] Morphine Sulfate 2 mg 01/19/18 05:41 01/19/18 07:40 Morphine Sulfate IVPUSH 2 mg Q3H PRN Administration PAIN LEVEL 7 - 10 Nicotine 21 mg 01/19/18 10:00 Nicoderm Patch - TD DAILY [facility] Oxycodone/Acetaminophen 2 combo 01/19/18 09:45 01/19/18 09:56 Percocet 5/325 - PO 2 combo Q4H [facility] Administration Rivaroxaban 15 mg 01/19/18 04:44 01/19/18 04:59 Xarelto - PO 15 mg BID [facility] Administration Tiotropium [place] 1 puff 01/19/18 10:00 Spiriva - IH DAILY [facility] Current Medications Acetaminophen (Tylenol -) 650 mg PO Q4H PRN PRN Reason: PAIN LEVEL 1-3 Acetaminophen (Tylenol -) 650 mg PO Q4H PRN PRN Reason: PAIN LEVEL 4 - 6 Stop: 01/22/18 11:04 Albuterol Sulfate (Ventolin 0.083% Nebulizer Soln -) 1 amp NEB Q6H PRN PRN Reason: SHORT OF BREATH/WHEEZING Amlodipine Besylate (Norvasc -) 10 mg PO DAILY [facility] Last Admin: 01/19/18 10:28 Dose: 10 mg Docusate Sodium (Colace -) 100 mg PO Q8H PRN PRN Reason: CONSTIPATION Last Admin: 01/19/18 10:28 Dose: 100 mg Azithromycin 500 mg/ Dextrose 250 mls @ 250 mls/hr IVPB DAILY [facility] Last Admin: 01/19/18 10:27 Dose: 250 mls/hr Ceftriaxone Sodium 1 gm/ (Dextrose) 50 mls @ 200 mls/hr IVPB DAILY [facility]; Protocol Last Admin: 01/19/18 13:46 Dose: 200 mls/hr Ipratropium [place] (Atrovent 0.02% Nebulizer -) 1 amp NEB Q6H PRN PRN Reason: WHEEZING Isosorbide Mononitrate (Imdur -) 30 mg PO DAILY [facility] Last Admin: 01/19/18 10:28 Dose: 30 mg Methylprednisolone Sodium Succinate (Solu-Medrol -) 40 mg IVPUSH BID [facility] Mometasone Furoate (Asmanex 110mcg -) 1 puff IH DAILY [facility] Last Admin: 01/19/18 13:46 Dose: 1 puff Morphine Sulfate (Morphine Sulfate) 2 mg IVPUSH Q4H PRN PRN Reason: PAIN LEVEL 7 - 10 Nicotine (Nicoderm Patch -) 21 mg TD DAILY [facility] Last Admin: 01/19/18 10:39 Dose: 21 mg Oxycodone HCl (Roxicodone -) 10 mg PO Q4H PRN PRN Reason: PAIN LEVEL 4 - 6 Tiotropium [place] (Spiriva -) 1 puff IH DAILY [facility] Last Admin: 01/19/18 13:47 Dose: 1 puff Tramadol HCl (Ultram -) 50 mg PO Q6HPO [facility]1983 CT chest noting fractures of ribs 4, 5, 8 on R and bibasilar atelectasis ASSESSMENT/PLAN: Iv solumed tapering 62 year old male with a hx of HTN, COPD, HLD presents to the hospital with acute rib fractures s/p fall #Acute rib fractures: -fractures of R ribs 4, 5, 8 - CT scan, -encourage incentive spirometry -received dilaudid 2mg ONCE -morphine 2mg q4h for pain -percocet 10mg Q 4HPRN -monitor O2 sats -O2 by nasal cannula 2-3 liters -Solumed iv 40mg bid -Tramadol 50mg PO q6h [facility] -Repeat CXR- PA/LAT tomorrow -Now has mild hemothorax -Repeat CBC-stable #Acute hypoxic respiratory failure -Continue Oxygen as needed -on 3L-NC -Likely 2/2 to splinting from rib fracture - Pt initally mx for likely PE with dose of xarelto -CTA-negative for PE #COPD: patient has hx of COPD and is likely in mild-moderate acute exacerbation -continue duonebs PRN -Spiriva -mometasone -Iv solumed 40mg bid to continue to taper -monitor O2 saturation #Hypertension: mildly hypertensive -continue amlodipine 10mg PO QD #HLD: not an acute concern -not on medications, confirmed with pharmacy (Dr Croft [phone]) #FEN -no standing fluids -replete lytes as necessary in AM -low sodium diet #Prophylaxis -Stop heparin 5000 subq tid (hemothorax) #Disposition Repeat CXR in am, for likely DC tomorrow Visit type - Emergency Visit Emergency Visit: Yes ED Registration Date: 01/19/18 Care time: The patient presented to the Emergency Department on the above date and was hospitalized for further evaluation of their emergent condition. - New Patient This patient is new to me today: Yes Date on this admission: 01/19/18 - Critical Care Critical Care patient: No - Discharge Referral Referred to [facility] Med P.C.: No
[2018-01-19] MEDS: AZITHROMYCIN IVPB 500 MG in DEXTROSE 5%-WATER - 250 ML IVPB SCH (10:27)
[2018-01-19] MEDS: amLODIPine BESYLATE 10 MG TABLET (FP) PO SCH (10:28)
[2018-01-19] MEDS: ISOSORBIDE MONONITRATE 30 MG TAB.SR.24H (FP) PO SCH (10:28)
[2018-01-19] MEDS: MOMETASONE FUROATE 110 MCG/IH INHALER IH SCH ×2 (10:29→13:46)
[2018-01-19] MEDS: NICOTINE 21 MG/24 HOURS TOPICAL PATCH TD SCH (10:39)
[2018-01-19] MEDS: CEFTRIAXONE 1 GM in DEXTROSE 5%-WATER - 50 ML IVPB SCH ×2 (10:41→13:46)
[2018-01-19] MEDS: TIOTROPIUM BROMIDE 18 MCG CAPSULES IH SCH ×2 (10:41→13:47)
[2018-01-19] MEDS ORDERED: ACETAMINOPHEN 325 MG TABLET (FP) PO PRN (11:05)
[2018-01-19 12:06] VITALS: BMI 25.1
--- NOTE | 2018-01-19 13:40 | EKG ---
Test Reason : Blood Pressure : / mmHG Vent. Rate : 081 BPM Atrial Rate : 081 BPM P-R Int : 128 ms QRS Dur : 096 ms QT Int : 352 ms P-R-T Axes : 000 167 142 degrees QTc Int : 408 ms NORMAL SINUS RHYTHM Possible LIMB LEAD REVERSAL Confirmed by MD Paez Edward ([id number]) on 01/19/2018 1:40:01 PM Referred By: Confirmed By:Frantz Paez MD
--- NOTE | 2018-01-19 15:18 | PN ---
Teaching Attending Note Name of Resident: Brionna Miller ATTENDING PHYSICIAN STATEMENT I saw and evaluated the patient. I reviewed the resident's note and discussed the case with the resident. I agree with the resident's findings and plan as documented. SUBJECTIVE:states pain does not improve with percocet. states he has high tolerance for percocet and always took 20mg after surgeries. says pain has improved iwth morphine. some difficulty taking deep inspiration. denies CP, SOB , fever, chills, cough, N/V/C/D or hemoptysis OBJECTIVE: Last Vital Signs Temp Pulse Resp BP Pulse Ox 97.8 F 72 18 125/77 97 01/19/18 12:03 01/19/18 12:03 01/19/18 12:10 01/19/18 12:03 01/19/18 12:10 General NAD HEENT abrasion to bridge of nose no active bleeding CV S1 S2 RRR no murmur/rub/gallop Lungs coarse breath sounds diffusely, +splinting. no wheezing chest wall R side rib tenderness no ecchymosis ASSESSMENT AND PLAN: 62yo M with PMH HTN,. COPD, and dyslipidemia presented to the ER after mechanical fall chasing his dog where he tripped and fell into a brick wall. 1. Multiple rib fractures ( R side 4/5/8 and questionable 7). due to mechanical fall. pt has significant pain not improving on percocet. improving with morphine. will start tramadol Q6H for pain and allow percocet for mild pain and morphine for severe pain. incentive spirometer. encouraged OOB to chair. counselled on risk of opiate dependence 2. R sided small hemothorax- due to rib fracture. will repeat CBC to ensure Hgb is stable. repeat CXR in the AM to evaluate if effusion is worsening. monitor respiratory status closely. d/c xarelto which was started overnight for suspicion of PE 3. Acute hypoxic respiratory distress- due to rib fracture and pain. now improved. supplemental oxygen as needed to maintain spO2 >90% 4. ACute COPD exacerbation- not currently wheezing. states was recently treated for bronchitis (does not know which medications). will decrease medrol 40mg Q8H to BID dosing. can likely tolerate quick steroid taper. no productive cough and afebrile. will cont ceftriaxone and azithro day 1 for now. will liekly d/c tomorrow if continues to improve 5. HTN- controlled. cont home management 6. dsylipidemia- statin 7. DVT ppx- would hold heparin sq given hemothorax. place SCD
--- NOTE | 2018-01-19 15:28 | PN ---
Physical Exam: SUBJECTIVE: Patient seen and examined OBJECTIVE: Vital Signs Period Temp Pulse Resp BP Sys/Vasquez Pulse Ox Last 24 Hr 97.8 F-98.6 F 68-83 16-24 125-155/67-90 92-97 GENERAL: The patient is awake, alert, and fully oriented, in no acute distress. HEAD: Normal with no signs of trauma. EYES: PERRL, extraocular movements intact, sclera anicteric, conjunctiva clear. No ptosis. ENT: Ears normal, nares patent, oropharynx clear without exudates, moist mucous membranes. NECK: Trachea midline, full range of motion, supple. LUNGS: Breath sounds equal, clear to auscultation bilaterally, no wheezes, no crackles, no accessory muscle use. HEART: Regular rate and rhythm, S1, S2 without murmur, rub or gallop. ABDOMEN: Soft, nontender, nondistended, normoactive bowel sounds, no guarding, no rebound, no hepatosplenomegaly, no masses. EXTREMITIES: 2+ pulses, warm, well-perfused, no edema. NEUROLOGICAL: Cranial nerves II through XII grossly intact. Normal speech, gait not observed. PSYCH: Normal mood, normal affect. SKIN: Warm, dry, normal turgor, no rashes or lesions noted Laboratory Results - last 24 hr 01/18/18 01/18/18 01/18/18 22:10 22:30 22:30 WBC 15.9 H D RBC 4.49 Hgb 14.7 Hct 44.4 MCV 98.8 H MCH 32.7 MCHC 33.1 RDW 16.4 H Plt Count 199 MPV 9.4 Total Counted 100 Neutrophils % No Result Required. Neutrophils % (Manual) 78.0 Lymphocytes % No Result Required. Lymphocytes % (Manual) 11.0 Monocytes % (Manual) 8 Myelocytes % (Man) 2 Nucleated RBC % 0 Differential Comment Man diff performed Platelet Estimate Adequate Platelet Comment Polychromasia 1+ Macrocytosis 1+ PT with INR 10.50 INR 0.93 D-Dimer Anticoagulation Therapy No Result Required. Puncture Site Right radial ABG pH 7.45 ABG pCO2 at Pt Temp 37.0 ABG pO2 at Pt Temp 76.3 L D ABG HCO3 25.1 ABG O2 Sat (Measured) 96.3 ABG O2 Content 18.8 ABG Base Excess 1.8 Test Positive O2 Delivery Device Nasal Oxygen Flow Rate 2l Vent Mode No Result Required. Vent Rate No Result Required. Mechanical Rate No Result Required. Pressure Support Vent No Result Required. Sodium Potassium Chloride Carbon Dioxide Anion Gap BUN Creatinine Creat Clearance w eGFR Random Glucose Calcium Magnesium Total Bilirubin AST ALT Alkaline Phosphatase Creatine Kinase Creatine Kinase Index CK-MB (CK-2) Troponin I B-Natriuretic Peptide Total Protein Albumin 01/18/18 01/18/18 01/19/18 22:30 22:30 01:30 WBC RBC Hgb Hct MCV MCH MCHC RDW Plt Count MPV Total Counted Neutrophils % Neutrophils % (Manual) Lymphocytes % Lymphocytes % (Manual) Monocytes % (Manual) Myelocytes % (Man) Nucleated RBC % Differential Comment Platelet Estimate Platelet Comment Polychromasia Macrocytosis PT with INR INR D-Dimer 1006 H Anticoagulation Therapy Puncture Site ABG pH ABG pCO2 at Pt Temp ABG pO2 at Pt Temp ABG HCO3 ABG O2 Sat (Measured) ABG O2 Content ABG Base Excess Test O2 Delivery Device Oxygen Flow Rate Vent Mode Vent Rate Mechanical Rate Pressure Support Vent Sodium 145 Potassium 4.1 Chloride 112 H Carbon Dioxide 22 Anion Gap 11 BUN 25 H D Creatinine 0.7 Creat Clearance w eGFR > 60 Random Glucose 120 H Calcium 8.4 L Magnesium 2.2 Total Bilirubin 0.4 AST 36 ALT 64 D Alkaline Phosphatase 92 D Creatine Kinase 220 Creatine Kinase Index 1.4 CK-MB (CK-2) 3.08 Troponin I < 0.02 B-Natriuretic Peptide 178.00 H Total Protein 6.5 Albumin 3.3 L Active Medications Generic Name Dose Route Start Last Admin Trade Name Freq PRN Reason Stop Dose Admin Acetaminophen 650 mg 01/19/18 00:35 Tylenol - PO Q4H PRN PAIN LEVEL 1-3 Acetaminophen 650 mg 01/19/18 11:05 Tylenol - PO 01/22/18 11:04 Q4H PRN PAIN LEVEL 4 - 6 Albuterol Sulfate 1 amp 01/19/18 00:35 Ventolin 0.083% Nebulizer Soln - NEB Q6H PRN SHORT OF BREATH/WHEEZING Amlodipine Besylate 10 mg 01/19/18 10:00 01/19/18 10:28 Norvasc - PO 10 mg DAILY [facility] Administration Docusate Sodium 100 mg 01/19/18 02:34 01/19/18 10:28 Colace - PO 100 mg Q8H PRN Administration CONSTIPATION Azithromycin 500 mg/ Dextrose 250 mls @ 250 mls/hr 01/19/18 10:00 01/19/18 10 :27 IVPB 250 mls/hr DAILY [facility] Administration Ceftriaxone Sodium 1 gm/ 50 mls @ 200 mls/hr 01/19/18 10:00 01/19/18 13:46 Dextrose IVPB 200 mls/hr DAILY [facility]SE [facility]UEL Administration Protocol Ipratropium [place] 1 amp 01/19/18 00:35 Atrovent 0.02% Nebulizer - NEB Q6H PRN WHEEZING Isosorbide Mononitrate 30 mg 01/19/18 10:00 01/19/18 10:28 Imdur - PO 30 mg DAILY [facility] Administration Methylprednisolone Sodium Succinate 40 mg 01/19/18 22:00 Solu-Medrol - IVPUSH BID [facility] Mometasone Furoate 1 puff 01/19/18 10:00 01/19/18 13:46 Asmanex 110mcg - IH 1 puff DAILY [facility] Administration Morphine Sulfate 2 mg 01/19/18 15:13 Morphine Sulfate IVPUSH Q4H PRN PAIN LEVEL 7 - 10 Nicotine 21 mg 01/19/18 10:00 01/19/18 10:39 Nicoderm Patch - TD 21 mg DAILY [facility] Administration Oxycodone HCl 10 mg 01/19/18 11:05 Roxicodone - PO Q4H PRN PAIN LEVEL 4 - 6 Tiotropium [place] 1 puff 01/19/18 10:00 01/19/18 13:47 Spiriva - IH 1 puff DAILY [facility] Administration Tramadol HCl 50 mg 01/19/18 15:15 Ultram - PO Q6H [facility] ASSESSMENT/PLAN:
[2018-01-19 16:11] LABS: HEMATOCRIT 40.9 % (35.4-49); HEMOGLOBIN 13.8 GM/dL (11.7-16.9); MCH 33.2 pg (25.7-33.7); MCHC 33.6 g/dl (32.0-35.9); MEAN CELL VOLUME 98.7 fl (80-96); MEAN PLT VOLUME 9.2 fl (7.5-11.1); PLATELET COUNT 191 K/MM3 (134-434); RBC 4.15 M/mm3 (4.00-5.60); RDW 16.2 % (11.9-15.9); WHITE BLOOD COUNT 13.4 K/mm3 (4.0-10.0)
[2018-01-19] MEDS: traMADol HCL 50 MG TABLET PO SCH ×2 (18:26→23:45)
[2018-01-19] MEDS: methylPREDNISolone NA SUCC 40 MG/1 ML VIAL IVPUSH SCH (21:54)
[2018-01-20] MEDS: ACETAMINOPHEN 325 MG TABLET (FP) PO PRN ×2 (02:05→14:29)
[2018-01-20] MEDS: oxyCODONE HCL 5 MG TABLET PO PRN ×2 (02:05→14:28)
[2018-01-20] MEDS: traMADol HCL 50 MG TABLET PO SCH ×2 (05:58→12:14)
[2018-01-20 07:10] LABS: BASO % 0.2 % (0-2.0); HEMATOCRIT 39.7 % (35.4-49); HEMOGLOBIN 13.4 GM/dL (11.7-16.9); LYMPH % 7.6 % (8-40); MCH 33.6 pg (25.7-33.7); MCHC 33.8 g/dl (32.0-35.9); MEAN CELL VOLUME 99.2 fl (80-96); MEAN PLT VOLUME 9.7 fl (7.5-11.1); MONO % 4.4 % (3.8-10.2); NEUT % 87.8 % (42.8-82.8); PLATELET COUNT 168 K/MM3 (134-434); RDW 16.2 % (11.9-15.9)
[2018-01-20 07:38] LABS: ALBUMIN 3.1 g/dl (3.4-5.0); ANION GAP 6 (8-16); BLOOD UREA NITROGEN 22 mg/dL (7-18); CALCIUM 8.2 mg/dL (8.5-10.1); CHLORIDE 107 mmol/L (98-107); CO2 28 mmol/L (21-32); GLUCOSE,RANDOM 135 mg/dL (74-106); MAGNESIUM 2.4 mg/dL (1.8-2.4); POTASSIUM 4.2 mmol/L (3.5-5.1); SODIUM 141 mmol/L (136-145)
--- NOTE | 2018-01-20 07:46 | PN ---
Physical Exam: SUBJECTIVE: Patient seen and examined OBJECTIVE: Vital Signs Period Temp Pulse Resp BP Sys/Vasquez Pulse Ox Last 24 Hr 97.4 F-98.2 F 68-78 18-24 125-137/62-88 96-97 GENERAL: The patient is awake, alert, and fully oriented, in no acute distress. HEAD: Normal with no signs of trauma. EYES: PERRL, extraocular movements intact, sclera anicteric, conjunctiva clear. No ptosis. ENT: Ears normal, nares patent, oropharynx clear without exudates, moist mucous membranes. NECK: Trachea midline, full range of motion, supple. LUNGS: Breath sounds equal, clear to auscultation bilaterally, no wheezes, no crackles, no accessory muscle use. HEART: Regular rate and rhythm, S1, S2 without murmur, rub or gallop. ABDOMEN: Soft, nontender, nondistended, normoactive bowel sounds, no guarding, no rebound, no hepatosplenomegaly, no masses. EXTREMITIES: 2+ pulses, warm, well-perfused, no edema. NEUROLOGICAL: Cranial nerves II through XII grossly intact. Normal speech, gait not observed. PSYCH: Normal mood, normal affect. SKIN: Warm, dry, normal turgor, no rashes or lesions noted Laboratory Results - last 24 hr 01/19/18 01/20/18 15:50 06:10 WBC 13.4 H 12.0 H RBC 4.15 4.00 Hgb 13.8 13.4 Hct 40.9 39.7 MCV 98.7 H 99.2 H MCH 33.2 33.6 MCHC 33.6 33.8 RDW 16.2 H 16.2 H Plt Count 191 168 MPV 9.2 9.7 Neutrophils % 87.8 H Lymphocytes % 7.6 L Monocytes % 4.4 Eosinophils % 0.0 D Basophils % 0.2 Nucleated RBC % 0 Active Medications Generic Name Dose Route Start Last Admin Trade Name Freq PRN Reason Stop Dose Admin Acetaminophen 650 mg 01/19/18 00:35 01/20/18 02:05 Tylenol - PO 650 mg Q4H PRN Administration PAIN LEVEL 1-3 Acetaminophen 650 mg 01/19/18 11:05 Tylenol - PO 01/22/18 11:04 Q4H PRN PAIN LEVEL 4 - 6 Albuterol Sulfate 1 amp 01/19/18 00:35 01/19/18 21:35 Ventolin 0.083% Nebulizer Soln - NEB 1 amp Q6H PRN Administration SHORT OF BREATH/WHEEZING Amlodipine Besylate 10 mg 01/19/18 10:00 01/19/18 10:28 Norvasc - PO 10 mg DAILY JOSE MANUEL Administration Docusate Sodium 100 mg 01/19/18 02:34 01/19/18 10:28 Colace - PO 100 mg Q8H PRN Administration CONSTIPATION Azithromycin 500 mg/ Dextrose 250 mls @ 250 mls/hr 01/19/18 10:00 01/19/18 10 :27 IVPB 250 mls/hr DAILY JOSE MANUEL Administration Ceftriaxone Sodium 1 gm/ 50 mls @ 200 mls/hr 01/19/18 10:00 01/19/18 13:46 Dextrose IVPB 200 mls/hr DAILY JOSE MANUEL Administration Protocol Ipratropium Gilbert 1 amp 01/19/18 00:35 Atrovent 0.02% Nebulizer - NEB Q6H PRN WHEEZING Isosorbide Mononitrate 30 mg 01/19/18 10:00 01/19/18 10:28 Imdur - PO 30 mg DAILY JOSE MANUEL Administration Methylprednisolone Sodium Succinate 40 mg 01/19/18 22:00 01/19/18 21:54 Solu-Medrol - IVPUSH 40 mg BID JOSE MANUEL Administration Mometasone Furoate 1 puff 01/19/18 10:00 01/19/18 13:46 Asmanex 110mcg - IH 1 puff DAILY JOSE MANUEL Administration Morphine Sulfate 2 mg 01/19/18 15:13 01/19/18 21:54 Morphine Sulfate IVPUSH 2 mg Q4H PRN Administration PAIN LEVEL 7 - 10 Nicotine 21 mg 01/19/18 10:00 01/19/18 10:39 Nicoderm Patch - TD 21 mg DAILY JOSE MANUEL Administration Oxycodone HCl 10 mg 01/19/18 11:05 01/20/18 02:05 Roxicodone - PO 10 mg Q4H PRN Administration PAIN LEVEL 4 - 6 Tiotropium Gilbert 1 puff 01/19/18 10:00 01/19/18 13:47 Spiriva - IH 1 puff DAILY JOSE MANUEL Administration Tramadol HCl 50 mg 01/19/18 18:00 01/20/18 05:58 Ultram - PO 50 mg Q6HPO JOSE MANUEL Administration ASSESSMENT/PLAN:
[2018-01-20 07:47] LABS: ALK PHOS 86 U/L (45-117); BILIRUBIN,TOTAL 0.4 mg/dL (0.2-1.0); CREATININE 0.7 mg/dL (0.7-1.3); PHOSPHOROUS 3.7 mg/dL (2.5-4.9); SGOT/AST 25 U/L (15-37); SGPT/ALT 54 U/L (12-78)
[2018-01-20] MEDS: AZITHROMYCIN IVPB 500 MG in DEXTROSE 5%-WATER - 250 ML IVPB SCH (09:37)
[2018-01-20] MEDS: NICOTINE 21 MG/24 HOURS TOPICAL PATCH TD SCH (09:39)
[2018-01-20] MEDS: TIOTROPIUM BROMIDE 18 MCG CAPSULES IH SCH (09:40)
[2018-01-20] MEDS: MOMETASONE FUROATE 110 MCG/IH INHALER IH SCH (09:40)
[2018-01-20] MEDS: ISOSORBIDE MONONITRATE 30 MG TAB.SR.24H (FP) PO SCH (09:40)
[2018-01-20] MEDS: amLODIPine BESYLATE 10 MG TABLET (FP) PO SCH (09:40)
[2018-01-20] MEDS: methylPREDNISolone NA SUCC 40 MG/1 ML VIAL IVPUSH SCH (09:40)
[2018-01-20] MEDS ORDERED: DEXTROSE 5%-WATER - 50 ML IVPB ONE (11:27)
[2018-01-20] MEDS ORDERED: cefTRIAXone SODIUM 1 GM VIAL ONE (11:27)
[2018-01-20] MEDS: CEFTRIAXONE 1 GM in DEXTROSE 5%-WATER - 50 ML IVPB SCH (12:14)
--- NOTE | 2018-01-20 12:25 | PN ---
Teaching Attending Note Name of Resident: Brionna Miller ATTENDING PHYSICIAN STATEMENT I saw and evaluated the patient. I reviewed the resident's note and discussed the case with the resident. I agree with the resident's findings and plan as documented. SUBJECTIVE:c/o pain in his rib cage but improved with pain medication. no difficulty breathing. denies Cp, SOB, fever, chills, cough, hemoptysis, N/V/C/D OBJECTIVE: Last Vital Signs Temp Pulse Resp BP Pulse Ox 97.9 F 69 20 115/69 96 01/20/18 10:00 01/20/18 10:00 01/20/18 10:01/20/18 10:01/20/18 09:00 General NAD HEENT abrasion to bridge of nose no active bleeding CV S1 S2 RRR no murmur/rub/gallop Lungs CTA B/L no wheezing, +splinting. no wheezing chest wall no wall tenderness small ecchymosis on the R side of abdomen ASSESSMENT AND PLAN: 62yo M with PMH HTN,. COPD, and dyslipidemia presented to the ER after mechanical fall chasing his dog where he tripped and fell into a brick wall. 1. Multiple rib fractures ( R side 4/5/8 and questionable 7). due to mechanical fall. pain improved and only requested breakthrough medication 2x in the past 24H. does not want tramadol although his pain has been controlled on it. only wants percocet for breakthrough pain. will d/c tramadol and morphine and monitor patient. concern for abuse potential of opiates as pt is overly concerned about getting percocet on discharge and how many tablets he would receive. expressed would give 3 days at q6h dosing however if he uses only for severe pain and tylenol for mild pain. expressed abuse potential and other side effects of opiate use. will await for PT eval. 2. R sided small hemothorax- due to rib fracture. hgb has been stable. saturating 95% on RA. repeat CXR pa and lat negative for effusions. 3. Acute hypoxic respiratory distress- due to rib fracture and pain. now improved. saturating well on RA 4. ACute COPD exacerbation- not currently wheezing. improved. will d/c IV medrol and place on quick medrol dose taper. Azithro/ceftriaxone day 2. will d/ c on medrol taper and keflex to complete 5 day course. advised to f/u with group work program director this week and inform him of hemothorax and current medication. may require repeat imaging. 5. HTN- controlled. cont home management 6. dsylipidemia- statin 7. DVT ppx- would hold heparin sq given hemothorax. place SCD 8. pt expressed to go home today. will wait for PT assessment. Istop Reference #: [id number]
[2018-01-20 14:13] VITALS: BP 134/84; PULSE 74; TEMP 98.2
--- NOTE | 2018-01-20 16:33 | DS ---
Physical Exam: SUBJECTIVE: Patient seen and examined. SOB improving. Pain controlled on medication. Able to use incentive spirometry. OBJECTIVE: Vital Signs Period Temp Pulse Resp BP Sys/Vasquez Pulse Ox Last 24 Hr 97.8 F-98.2 F 68-77 20-20 115-137/68-88 96-96 Vital Signs Temp 98.2 F 01/20/18 14:11 Pulse 74 01/20/18 14:11 Resp 20 01/20/18 10:00 BP 134/84 01/20/18 14:11 Pulse Ox 96 01/20/18 09:00 Intake & Output 01/19/18 01/20/18 01/20/18 23:59 11:59 23:59 Intake Total 960 580 300 Output Total 400 1100 500 Balance 560 -520 -200 Weight 81.647 kg Intake: IV 10 10 SALINE LOCK 10 10 IVPB 350 Oral 600 570 300 Output: Urine 400 1100 500 Void 400 1100 500 Other: Voiding Method Urinal Urinal Bowel Movement No No Yes Height 1.8 m Body Mass Index (BMI) 25.1 Weight Measurement Method Estimated by Staff PHYSICAL EXAM GENERAL: The patient is awake, alert, and fully oriented, sating well on RA at 93%. HEAD: Healing bruise over bridge of nose. LUNGS: Slightly reduced respiratory effort. Breath sounds equal, clear to auscultation bilaterally HEART: Regular rate and rhythm, S1, S2 ABDOMEN: Healing bruise over R abdomen. Obese, firm, nontender, normoactive bowel sounds EXTREMITIES: 2+ pulses, warm, well-perfused, no edema. NEUROLOGICAL: Cranial nerves II through XII grossly intact. Normal speech, gait not observed. LABS Laboratory Results - last 24 hr 01/20/18 01/20/18 06:10 06:10 WBC 12.0 H RBC 4.00 Hgb 13.4 Hct 39.7 MCV 99.2 H MCH 33.6 MCHC 33.8 RDW 16.2 H Plt Count 168 MPV 9.7 Neutrophils % 87.8 H Lymphocytes % 7.6 L Monocytes % 4.4 Eosinophils % 0.0 D Basophils % 0.2 Nucleated RBC % 0 Sodium 141 Potassium 4.2 Chloride 107 Carbon Dioxide 28 D Anion Gap 6 L BUN 22 H Creatinine 0.7 Creat Clearance w eGFR > 60 Random Glucose 135 H Calcium 8.2 L Phosphorus 3.7 Magnesium 2.4 Total Bilirubin 0.4 AST 25 D ALT 54 Alkaline Phosphatase 86 Total Protein 6.0 L Albumin 3.[address] chest 01/19/18 : fractures of ribs 4, 5, 8 on R and bibasilar atelectasis, CTA-negative for PA HOSPITAL COURSE: Date of Admission:01/19/18 Date of Discharge: 01/20/18 62 year old male with a hx of HTN, COPD, HLD presents to the hospital with acute rib fractures s/p fall. The rib fractures were managed conservatively. His pain was managed with intravenous and oral opiates. Repeat Xray did not show hemo/pneumothorax. CBC has been stable. Patient was initially in acute hypoxic respiratory failure and on nasal cannular oxygen likely due to both splinting from the pain of the rib fractures and his underlying COPD. CTA was negative for a PE. He was managed on nebulizers and iv steroids and transitioned to oral steroid (medrol mandeep) and to complete 7 day course of antibiotics with 3 days extra course of Keflex, on discharge. He was managed on his home amlodipine 10mg daily for hypertension. Pt declined VNS services and will be discharged home following PT evaluation showing him able to walk without assistance, to be assisted by his sister at home. Minutes to complete discharge: 40 Discharge Summary Reason For Visit: FRACTURE OF MULTIPLE RIBS,SHORT OF BREATH EXERTION Current Active Problems COPD (chronic obstructive pulmonary disease) (Acute) Multiple fractures of ribs (Acute) Shortness of breath on exertion (Acute) - Instructions Diet, Activity, Other Instructions: You came in after falling and fracturing ribs on your right side We placed you on pain medications some of which are opiates. This medication has a potential to become addictive and can lead to dependence. Please take medication as needed for severe pain. Do not take opiates and operative heavy machinery or drive Continue to use incentive spirometry to help exercise your lungs We are discharging you home where you may get help from your sister You were short of breath and we managed your chronic obstructive airway disease (bronchitis) with nebulizers, antibiotics and steroids Continue to use the nebulizers and oral steroids Take the oral steroids as prescribed, you will be a quick taper. follow blister pack as instructed Follow up with your primary care doctor within a week Follow up with the data solutions architect If you think your symptoms are getting worse, If you develop worsening chest pain, difficulty breathing or coughing up blood. return to the emergency room Referrals: Vaughn Penny MD [Staff Physician] - 1 Week Marko Croft MD [Primary Care Provider] - 01/21/18 - Home Medications Comprehensive Discharge Medication List: Ambulatory Orders Amlodipine Besylate [Norvasc -] 10 mg PO DAILY 04/14/17 Isosorbide Mononitrate [Isosorbide Mononitrate ER] 30 mg PO DAILY 04/14/17 Albuterol Sulfate Inhaler - [Ventolin HFA Inhaler -] 1 - 2 inh PO Q4H #1 inhaler 04/15/17 Nicotine Patch [Nicoderm Patch -] 21 mg TD DAILY #30 patch 04/15/17 Tiotropium Otley [Spiriva] 1 inh PO DAILY #30 inhaler 04/15/17 Dapagliflozin Propanediol [Farxiga] 5 mg PO DAILY 01/19/18 Fluticasone/Umeclidin/Vilanter [Trelegy Ellipta 100-62.5-25] 1 puff IH DAILY Fluticasone/Vilanterol [Breo Ellipta 100-25 Mcg INH] 1 each IH DAILY 01/19/18 Naltrexone HCl/Bupropion HCl [Contrave ER 8-90 mg Tablet] 2 each PO BID Cephalexin [Keflex] 500 mg PO BID 3 Days #6 capsule 01/20/18 Docusate Sodium [Colace -] 100 mg PO Q8H PRN 14 Days #32 capsule 01/20/18 Methylprednisolone [Medrol Dose Mandeep] 4 mg PO ASDIR #21 tablet 01/20/18 Oxycodone HCl/Acetaminophen [Percocet 10-325 mg Tablet] 1 each PO Q6H PRN #12 tablet MDD 40 01/20/18 This patient is new to me today: No Emergency Visit: Yes ED Registration Date: 01/19/18 Care time: The patient presented to the Emergency Department on the above date and was hospitalized for further evaluation of their emergent condition. Critical Care patient: No - Discharge Referral Referred to [facility] Med P.C.: No
== END 2018-01-20 17:30 | disposition home or self-care (01) | DRG 135 ==
LOC: JER 21:37 → JERBED 01-19 00:21 → J4W 01-19 10:07
PROVIDERS: ADMIT Internal Medicine; ATTEND Internal Medicine
DX: S22.41XA Multiple fractures of ribs, right side, initial encounter for closed fracture (principal); W19.XXXA Unspecified fall, initial encounter; Y93.9 Activity, unspecified; Y92.89 Other specified places as the place of occurrence of the external cause; Y99.9 Unspecified external cause status; I10 Essential (primary) hypertension; E78.5 Hyperlipidemia, unspecified; J98.11 Atelectasis; R06.02 Shortness of breath; S27.1XXA Traumatic hemothorax, initial encounter; J44.1 Chronic obstructive pulmonary disease with (acute) exacerbation; J96.01 Acute respiratory failure with hypoxia
CPT/HCPCS: 36415; 36600; 71046-TC-FY; 71250-TC; 71275-TC; 80048; 80053; 82550; 82553; 82803; 83735; 83880; 84100; 84484; 85025; 85027; 85379; 85610; 93005; 93010; 94640; 97116-GP; 97161-GP; 99285-25

== ENCOUNTER 2018-01-25 11:19 | Emergency (ER) | payer OTHER ==
[2018-01-25] MEDS ORDERED: NALOXONE HCL 0.4 MG/ML VIAL ONE (11:42)
[2018-01-25] MEDS ORDERED: EPINEPHrine 1:10,000 (P-F SYR) 1 MG/10 ML DISP.SYRIN ONE (11:42)
--- NOTE | 2018-01-25 11:48 | PDOC ---
History of Present Illness - General History Source: EMS, Family, Old Records Exam Limitations: Clinical Condition, Unresponsive <Brandon Doty - Last Filed: 01/25/18 12:32> - General History Source: EMS, Family, Old Records Exam Limitations: Clinical Condition, Unresponsive - History of Present Illness Initial Comments: 01/25/18 12:05 The patient is a 62 year old male, with a significant past medical history of HTN, COPD, HLD, and fractured ribs, who presents to the emergency department with, cardiac arrest. As per patients sister, he was admitted to [facility] for broken ribs last week (01/18) and discharged after 3 days (01/20). The sister reports he has developed shortness of breath after being discharged and she has made several attempts to bring him into the ED. She reports borrowing an oxygen tank from a neighbor and giving him to baby Aspirins, without help. She reports when this did not work she went to bring the car around and saw him slumped over. She immediately started CPR at 11:00am and called EMS. As per EMS , the patient was unresponsive in asystole upon their arrival. EMS administered 2 rounds epinephrine, Narcan was administered, and the Chun was placed on route. Upon arrival the patients initial pulse check and bedside Echo was in asystole at 11:20am and epinephrine was administered, CPR was resumed. Pulse check at 11:24am and bedside Echo was asystole. CPR was resumed and 2g of IV magnesium was administered. Pulse check and bedside Echo at 11:27am depicted asystole and epinephrine was administered. Pulse check and bedside Echo at 11: 30am depicted asystole and epinephrine was administered. Pulse check and bedside Echo at 11:32am depicted asystole. Time of was called at 11: 33am. Allergies: Penicillin. Social History: Former smoker (20 cigarettes per day). Denies EtOH use and recreational drug use. Primary Care Physician: Dr. Marko Park ([phone]) <Suzi Norton - Last Filed: 01/25/18 13:11> - General Chief Complaint: Cardiac Arrest Stated Complaint: CARDIAC ARREST Time Seen by Provider: 01/25/18 11:35 Past History - Past Medical History Anemia: No Asthma: No Cancer: No Cardiac Disorders: No CVA: No COPD: Yes CHF: No Dementia: No Diabetes: No GI Disorders: No Disorders: No HTN: Yes Hypercholesterolemia: Yes Liver Disease: No Seizures: No Thyroid Disease: No - Surgical History Abdominal Surgery: No Appendectomy: Yes Cardiac Surgery: No Cholecystectomy: No Lung Surgery: No Neurologic Surgery: No Orthopedic Surgery: Yes (left rotator cuff surgery 04/13/2017) - Immunization History Immunization Up to Date: Yes - Suicide/Smoking/Psychosocial Hx Smoking History: Former smoker Have you smoked in the past 12 months: No Number of Cigarettes Smoked Daily: 20 If you are a former smoker, when did you quit?: LAST MARCH Hx Alcohol Use: No Drug/Substance Use Hx: No Substance Use Type: None Hx Substance Use Treatment: No <Brandon Doty - Last Filed: 01/25/18 12:32> <Suzi Norton - Last Filed: 01/25/18 13:11> - Past Medical History Allergies/Adverse Reactions: Allergies Allergy/AdvReac Type Severity Reaction Status Date / Time Penicillins Allergy Severe Low Blood Verified 01/18/18 21:45 Pressure Home Medications: Ambulatory Orders Amlodipine Besylate [Norvasc -] 10 mg PO DAILY 04/14/17 Isosorbide Mononitrate [Isosorbide Mononitrate ER] 30 mg PO DAILY 04/14/17 Albuterol Sulfate Inhaler - [Ventolin HFA Inhaler -] 1 - 2 inh PO Q4H #1 inhaler 04/15/17 Nicotine Patch [Nicoderm Patch -] 21 mg TD DAILY #30 patch 04/15/17 Tiotropium Sherwood [Spiriva] 1 inh PO DAILY #30 inhaler 04/15/17 Dapagliflozin Propanediol [Farxiga] 5 mg PO DAILY 01/19/18 Fluticasone/Umeclidin/Vilanter [Trelegy Ellipta 100-62.5-25] 1 puff IH DAILY Fluticasone/Vilanterol [Breo Ellipta 100-25 Mcg INH] 1 each IH DAILY 01/19/18 Naltrexone HCl/Bupropion HCl [Contrave ER 8-90 mg Tablet] 2 each PO BID Cephalexin [Keflex] 500 mg PO BID 3 Days #6 capsule 01/20/18 Docusate Sodium [Colace -] 100 mg PO Q8H PRN 14 Days #32 capsule 01/20/18 Methylprednisolone [Medrol Dose Mandeep] 4 mg PO ASDIR #21 tablet 01/20/18 Oxycodone HCl/Acetaminophen [Percocet 10-325 mg Tablet] 1 each PO Q6H PRN #12 tablet MDD 40 01/20/18 Review of Systems - Review of Systems Able to Perform ROS?: No Comments:: 01/25/18 12:05 Unable to perform ROS due to patient's condition. <Suzi Norton - Last Filed: 01/25/18 13:11> *Physical Exam - Physical Exam Comments: 01/25/18 12:07 Limited exam due to patient's condition. GENERAL: Intubated. Cardiac arrest. ENT: ET tube in oropharynx. LUNGS: Breath sounds equal with bag. HEART: Absent heart sounds. Chun on chest. ABDOMEN: Distended with ecchymosis on the right side of the abdomen. EXTREMITIES: Ecchymosis on lower extremities. NEUROLOGICAL: ANO x0 <Suzi Norton - Last Filed: 01/25/18 13:11> Medical Decision Making - Medical Decision Making 01/25/18 11:39 A portion of this note was documented by scribe services under my direction. I have reviewed the details of the note, within reason, and agree with the documentation with the following case summary and management plan written by me. Patient treated in the ED. Patient arrives by ambulance to the emergency department. Nursing notes are reviewed and incorporated into the medical decision-making. Vital signs reviewed. 62-year-old male with history of hypertension, COPD, rib fractures is brought in by EMS in cardiac arrest since asystole. The patient was recently admitted here to [facility] for acute rib fractures. The patient is refracture treated conservatively. Was treated with pain medications. We aggressive demonstrated no pneumothorax at that time. Patient is noted to be in acute hypoxic respiratory failure at that time. Had a CAT scan of his chest was negative for pulmonary embolism. Was started on nebulizers and IV steroids and discharged with 7 days of antibiotics. The patient declined VNS at that time and was discharged home with his sister. However, according to sister, the patient has been continuing to complain of shortness of breath and started developed midsternal chest pain radiating to the back. Patient sister had called EMS and tried to bring the patient to the hospital but multiple times refused to go back. Today, the patient continued shortness of breath and chest pain and EMS was activated. Approximately 20 minutes prior to arrival, at around 11 AM, the patient went into witnessed cardiac arrest. EMS had intubated the patient and performed high-quality CPR. I given several rounds of narcan, epinephrine, sodium bicarbonate, calcium. Initial rhythm was asystole. The patient continued to be in asystole throughout the EMS resuscitation. EMS had attempted left sided needle decompression in 2nd midclavicle space on left side , for decreased breath sounds. Upon arrival to the ED, the patient was seen by me immediately and continues to be in asystole. Breath sounds were equal on both sides on bagging. Resuscitation was continued but unable to success reassess the patient. At 11:33 AM, the patient was pronounced that. Bedside echo demonstrated no cardiac activity. No pulses were palpable. Patient's sister , Mindy eRid, at bedside and informed. Dr. Zhu office reached out and awaiting phone call back. 01/25/18 12:32 Dr. Zhu office aware. They will fill out certificate. Case discussed with Loan Clerk O'Dominic [phone]. ME declined. <Brandon Doty - Last Filed: 01/25/18 12:32> - Medical Decision Making 11:45am Call placed to Dr. Marko Park's ([phone]) office, patient's PCP, to notify about patient's , awaiting call back. 12:11pm Second call placed to Dr. Marko Park's ([phone]) office, patient's PCP , to notify about patient's , awaiting call back. 12:26pm Case declined by [place] Loan Clerk. 1:09pm Call returned from Dr. Marko Park, case was discussed. <Suzi Norton - Last Filed: 01/25/18 13:11> *DC/Admit/Observation/Transfer <Brandon Doty - Last Filed: 01/25/18 12:32> - Attestations Scribe Attestion: 01/25/18 12:05 Documentation prepared by Suzi Norton, acting as medical policy specialist for Brandon Doty MD. <Suzi Norton - Last Filed: 01/25/18 13:11> Diagnosis at time of Disposition: Cardiac arrest - Discharge Dispostion Disposition: Condition at time of disposition:
[2018-01-25 12:29] VITALS: TEMP 96.2
== END 2018-01-25 16:27 | disposition expired ==
LOC: JER 11:19
DX: I46.9 Cardiac arrest, cause unspecified (principal); I10 Essential (primary) hypertension; E78.5 Hyperlipidemia, unspecified; E78.00 Pure hypercholesterolemia, unspecified; S22.49XD Multiple fractures of ribs, unspecified side, subsequent encounter for fracture with routine healing; W19.XXXD Unspecified fall, subsequent encounter; Z91.81 History of falling; Z87.891 Personal history of nicotine dependence; Z88.0 Allergy status to penicillin
CPT/HCPCS: 99283-25